=== PATIENT | male | born 1960 | race Caucasian/White ===

== ENCOUNTER 2019-05-16 13:07 | Inpatient (IN) | payer OTHER, SELFPAY ==
[~2019-05-16 13:07] MED LIST: ISOVUE-370 76%-LOCM 1 ML ONE; Iopamidol 370 76% 50 ML VIAL FS ONE
[2019-05-16 14:27] LABS: #Lymphocytes 2.5 thou/uL (1.20-3.40); #Monocytes 0.7 thou/uL (0.11-0.59); #Neutrophils 4.2 thou/uL (1.40-6.50); %Basophils 0.4 % (0.0-1.0); %Eosinophils 0.3 % (0.0-10.0); %Lymphocytes 33.4 % (21.0-51.0); %Monocytes 9.6 % (0.0-10.0); %Neutrophils 56.3 % (42.0-75.0); Hemoglobin 10.7 g/dL (14.0-18.0); Mean Corpuscular HGB CONC 33.8 g/dL (32.0-36.0); Mean Corpuscular Hemoglobin 34.6 pg (27.0-31.0); RBC Distribution Width 13.7 % (11.5-14.5); White Blood Cell (WBC) Count 7.4 thou/uL (4.8-10.8)
[2019-05-16 14:33] LABS: ALT (SGPT) 35 U/L (8-55); AST (SGOT) 95 U/L (5-34); Albumin 2.4 g/dL (3.5-5.0); Alkaline Phosphatase 115 U/L (40-150); Anion Gap 11 mmol/L (10-20); BUN (Urea Nitrogen) Less than 4 mg/dL (8.4-25.7); Calc. Creatinine Clearance 0 mL/min (70-130); Calcium 7.7 mg/dL (7.8-10.44); Carbon Dioxide 28 mmol/L (22-29); Chloride 94 mmol/L (98-107); Estimated GFR-MDRD Greater than 90; Globulin 4.9 g/dL (2.4-3.5); Glucose 112 mg/dL (70-105); Lipase 151 U/L (8-78); Magnesium 1.9 mg/dL (1.6-2.6); Potassium 3.4 mmol/L (3.5-5.1); Protein, Total 7.3 g/dL (6.0-8.3); Sodium 130 mmol/L (136-145)
[2019-05-16 14:37] LABS: MDiff Complete? YES; Macrocytosis SLIGHT = 6-15 cells (100X) (0-5/hpf); Mean Platelet Volume 7.9 fL (7.4-10.4); Platelet Count 66 thou/uL (130-400); Platelet Morphology Comment Appears Decreased; Polychromasia SLIGHT = 2-3 cells (100X) (0-2/hpf); Target Cells SLIGHT = 2-5 cells (100X) (0-1/hpf)
[2019-05-16 15:07] LABS: Bilirubin Large (Negative); Blood, Urine Negative (Negative); Glucose, Urine (Dipstick) 100 mg/dL (Negative); Leukocyte Negative (Negative); Nitrite Negative (Negative); Protein, Urine (Dipstick) Trace mg/dL (Neg-Trace); Urobilinogen > or = 8.0 mg/dL (Less than 2)
[2019-05-16 15:09] LABS: Clarity Clear (Clear)
[2019-05-16 15:26] LABS: INR-International Normal Ratio 1.8; PTT 41.4 SEC (22.9-36.1); Prothrombin Time 20.6 SEC (12.0-14.7)
--- NOTE | 2019-05-16 16:03 | CT ---
EXAM: CT Abdomen Pelvis W Con PROVIDED CLINICAL HISTORY: Abdominal pain COMPARISON: None FINDINGS: The visualized lung bases are free of significant opacity. A hiatal hernia is demonstrated with possi ble associated nonspecific mural thickening involving the visualized distal esophagus that may reflect esophagitis. There are innumerable subcentimeter hypodense foci throughout the liver. There is a 2.8 cm left adren al mass that demonstrates macroscopic fat compatible with myelolipoma. The kidneys, right adrenal gland, pancreas and spleen appear unremarkable. There is moderate gallbladder distention with evidence for at least one calcified stone. There is conspicuous free intraperitoneal fluid. There is no evidence for bowel obstruction. There is no evidence for free intraperitoneal air. Nonspecific mural thickening involving portions of small bowel and colon. The osseous structures demonstrate no concerning lytic or blastic lesions. IMPRESSION: 1. Innumerable subcentimeter hepatic hypodense lesions. Differential considerations would include met astatic disease and atypical infectious process. 2. Conspicuous free intraperitoneal fluid. No definite morphologic hepatic stigmata of cirrhosis. No splenic enlargement to suggest portal hypertension. 3. Hiatal hernia with possible mural thickening involving visualized portions of the distal esophagus , which may reflect esophagitis. 4. Other chronic findings as above.
--- NOTE | 2019-05-16 16:20 | PDOC.FPRHP ---
- History of Present Illness Chief Complaint: Abdominal Pain History of Present Illness: Pt is a 58 yo M with no PMH who presents for fatigue and abdominal pain. He has began to feel bad over the last month. About 2 weeks ago he has developed red urine. He has had diarrhea for the past week. His abdomen began to swell over the last couple of days. He takes Tylenol for the pain. His significant other says he has been having bowel and bladder incontinence. He has been belching a significant amount. He has hiccups so bad that he is unable to sleep in his own bedroom because he wakes up his significant other. Abdominal pain generalized dull ache. He says his pain is a 10/10. He has never had a colonoscopy. He has not seen a doctor in years. His FMH is + for CRC. - Allergies/Adverse Reactions Allergies Allergy/AdvReac Type Severity Reaction Status Date / Time No Known Allergies Allergy Unverified 05/16/19 16:49 - History PMHx: None PSHx: Vasectomy FHx: Mom- HTN, Colon Cancer ( 48), Dad- Heart attack ( 70), Sister- Breast Cancer Social: Smokes 1 PPD for 25 years. Few glasses of wine a day. No recreational drugs. - Review of Systems General: reports: fever/chills, night sweats, fatigue Eyes: reports: vision changes ENT: denies: nasal congestion, rhinorrhea Respiratory: reports: cough, shortness of breath Cardiovascular: denies: chest pain, edema Gastrointestinal: reports: nausea, vomiting, diarrhea, abdominal pain, other ( Melena). denies: constipation Genitourinary: reports: other (red urine) Skin: reports: jaundice Musculoskeletal: reports: arthritis/arthralgias Neurological: reports: weakness - Vital signs BP: 130/75 HR: 94 RR: 27 Tmax: 98.7 Pox: 98% on RA Wt: 81.65 kg - Physical Exam Constitutional: NAD, awake, alert and oriented HEENT: normocephalic and atraumatic, PERRLA, EOMI, normal nasal mucosa, MMM Neck: supple, trachea midline, no LAD Heart: RRR, normal S1/S2 Lungs: CTAB Abdomen: non-tender, bowel sounds present -Abdomen: Distended abdomen with L flank ecchymosis Musculoskeletal: normal structure, normal tone, ROM grossly normal Neurological: CN II-XII intact Skin: no rash/lesions -Heme/Lymphatic: Bruising on L flank Psychiatric: normal mood and affect FMR H&P: Results - Labs Result Diagrams: 05/16/19 18:43 05/16/19 13:53 Lab results: WBC 7.4 thou/uL (4.8-10.8) 05/16/19 13:53 Hgb 10.7 g/dL (14.0-18.0) L 05/16/19 13:53 Hct 31.8 % (42.0-52.0) L 05/16/19 13:53 MCV 102.0 fL (78.0-98.0) H 05/16/19 13:53 Plt Count 66 thou/uL (130-400) L 05/16/19 13:53 Neutrophils % 56.3 % (42.0-75.0) 05/16/19 13:53 Sodium 130 mmol/L (136-145) L 05/16/19 13:53 Potassium 3.4 mmol/L (3.5-5.1) L 05/16/19 13:53 Chloride 94 mmol/L (98-107) L 05/16/19 13:53 Carbon Dioxide 28 mmol/L (22-29) 05/16/19 13:53 BUN Less than 4 mg/dL (8.4-25.7) L 05/16/19 13:53 Creatinine 0.83 mg/dL (0.7-1.3) 05/16/19 13:53 Glucose 112 mg/dL (70-105) H 05/16/19 13:53 Calcium 7.7 mg/dL (7.8-10.44) L 05/16/19 13:53 Total Bilirubin 7.0 mg/dL (0.2-1.2) H 05/16/19 13:53 AST 95 U/L (5-34) H 05/16/19 13:53 ALT 35 U/L (8-55) 05/16/19 13:53 Alkaline Phosphatase 115 U/L (40-150) 05/16/19 13:53 Serum Total Protein 7.3 g/dL (6.0-8.3) 05/16/19 13:53 Albumin 2.4 g/dL (3.5-5.0) L 05/16/19 13:53 Lipase 151 U/L (8-78) H 05/16/19 13:53 Urine Ketones Trace mg/dL (Negative) A 05/16/19 14:50 Urine Blood Negative (Negative) 05/16/19 14:50 Urine Nitrite Negative (Negative) 05/16/19 14:50 Ur Leukocyte Esterase Negative (Negative) 05/16/19 14:50 - EKG Interpretation EKG: Sinus Tachy with QTc: 483 FMR H&P: A/P - Problem List (1) Coagulation defect Current Visit: Yes Status: Acute (2) Thrombocytopenia Current Visit: Yes Status: Acute Code(s): D69.6 - THROMBOCYTOPENIA, UNSPECIFIED (3) Anemia Current Visit: Yes Status: Acute Code(s): D64.9 - ANEMIA, UNSPECIFIED (4) Hyponatremia Current Visit: Yes Status: Acute Code(s): E87.1 - HYPO-OSMOLALITY AND HYPONATREMIA (5) Liver mass Current Visit: Yes Status: Acute Code(s): R16.0 - HEPATOMEGALY, NOT ELSEWHERE CLASSIFIED - Plan Pt is a 58 yo M with no past medical history who presents for abdominal pain and jaundice. 1. Liver Masses * Hx: jaundice, abdominal pain, bowel & bladder incontinence, cough with blood, red urine, fatigue * FMH of Colon Cancer * No Hx of Colonoscopy * AST: 95 * Bili: 7 * Lipase: 151 * TP: 7.3, Albumin 2.4 * UA: + Bili and Urobiliogen * Abd/Pelvis CT: Numerous subcm hepatic hypodensities, intraperitoneal fluid, and mural thickening of the distal esophagus * FOBT: pending * Consulted GI, appreciate recs 2. Anemia & Thrombocytopenia Hgb: 10.7 Plt: 66 * Will Monitor * Holding Anticoagulants * Peripheral Smear 3. Hyponatremia Na: 130 * LR @ 100 Condition: Stable Diet: HHLSo DVT PPX: Holding for now GI PPX: Pepcid Activity: Ambulate with Assist Precautions: Fall PCP: CC Code Status: DNR-DNI Dispo: Inpt, requires work-up for liver masses. LOS > 2 days. FMR H&P: Upper Level - Plan Date/Time: 05/16/19 1620 ICiaran MD, have evaluated this patient and agree with findings/plan as outlined by graduate internship resident. Pertinent changes/additions are listed here. Adiel Woods is a 58 year old with no PMH due to not having provider who presents to the ED because he has been feeling unwell over the last month. He has also had increased abdominal distention and dark urine over the last week. States that he has had bowel and bladder incontinence which is new for him. He had hiccups over the last week consistently keeping him up at night. Associated dark stools over the last 1-2 months. He has never had a colonoscopy. He has a family history of colon cancer. He drinks about 3-4 glasses of wine a day. He denies any fever, chills, chest pain, dyspnea. In the ED, he had a bilirubin of 7.0, elevated AST. INR of 1.8 and elevated PT/ PTT. Hg of 10.7 with MCV of 102. CT abd was done that showed innumerable subcentimeter hypodense hepatic lesions, considering mets vs infection. Free fluid in the intraperitoneum, mural thickening of a hiatal hernia at the distal esophagus and mural thickening of the small bowel and colon. FOBT pos in the ED. There was also a 2.8 cm adrenal mass seen on CT. EKG showed sinus tachy with QTc prolongation at 483. Lipase was 157. We will admit him to inpatient medical, consulting GI for jaundice, hyperbilirubinemia and liver lesions. Please see graduate internship note above for full H&P, which I have reviewed and agree with. Addendum - Attending - Attending Attestation Date/Time: 05/16/191905 I personally evaluated the patient and discussed the management with Dr. Zavala/ Javier. H&P repeated by me. I agree with the History, Examination, Assessment and Plan documented above with any addition or exceptions noted below. 58 yo WM with no PMH as he hasn't seen a doctor in over 20 years who presents with abdominal pain and swelling and feeling poorly. He endorses intermittent RUQ abdominal pain, hematemesis, dark loose stools and abdominal swelling for the past 2-3 weeks. His states he hasn't eaten in 2-3 weeks and has lost 15# during that time period. Mild yellowing of the skin and some bruising. He states that he fell down earlier this week because he was just weak. Now has some bruising to left abdomen. VSS Gen: A&O x3, mild jaundice CV: normal s1/s2 no murmurs Lungs: ctab Abd: distended, moderate RUQ ttp, no rebound, positive fluid wave. Bruising to left lateral abdomen and flank. Ext: tr edema Labs and imaging reports reviewed. 1)Acute liver failure-elevated bili and AST and alk phos with elevated INR 2) Hematemesis 3) Anemia 4) Hyponatremia 5) Thrombocytopenia-most likely secondary to splenic sequestration. 6) Multiple liver lesions/masses 7) Family history of colon cancer - Appreciate GI input for further evaluation. Morphine prn pain. Avoid tylenol and ibuprofen secondary to liver failure and GI bleeding.
[2019-05-16] MEDS ORDERED: Acetaminophen 325 MG TAB PO PRN (16:41)
[2019-05-16 17:33] LABS: Troponin I Less than 0.010 ng/mL (< 0.028)
[2019-05-16 18:12] VITALS: BMI 27.8
[2019-05-16] MEDS: Ondansetron ODT 4 MG TAB PO PRN (18:21)
[2019-05-16 19:01] LABS: Hemoglobin 11.2 g/dL (14.0-18.0); Mean Corpuscular HGB CONC 33.8 g/dL (32.0-36.0); Mean Corpuscular Hemoglobin 34.7 pg (27.0-31.0); Mean Platelet Volume 7.9 fL (7.4-10.4); Platelet Count 64 thou/uL (130-400); RBC Distribution Width 13.7 % (11.5-14.5); Red Blood Cell (RBC) Count 3.23 mill/uL (4.70-6.10); White Blood Cell (WBC) Count 8.2 thou/uL (4.8-10.8)
[2019-05-16] MEDS ORDERED: Morphine 4 MG/ML VIAL SLOW IVP PRN (19:03)
[2019-05-16] MEDS ORDERED: Sodium Chloride 0.9% (PF) 10 ML VIAL FS PRN (19:24)
[2019-05-16] MEDS ORDERED: GoLYTELY 4,000 ml Bottle PO SCH (19:30)
[2019-05-16 19:49] LABS: Band 8 % (5-11); Differential Comment Immature Cell(s); Eosinophils 2 % (0-10); Lymphocytes 22 % (21-51); MDiff Complete? YES; Macrocytosis SLIGHT = 6-15 cells (100X) (0-5/hpf); Metamyelocyte 1 % (0-0); Monocytes 3 % (0-10); Neutrophil 61 % (42-75); Platelet Morphology Comment Appears Decreased; Polychromasia SLIGHT = 2-3 cells (100X) (0-2/hpf); Reflex for Review?? YES; Target Cells SLIGHT = 2-5 cells (100X) (0-1/hpf)
[2019-05-16 20:45] LABS: Troponin I 0.019 ng/mL (< 0.028)
[2019-05-16] MEDS ORDERED: Famotidine 20 MG TAB PO SCH (21:00)
[2019-05-16] MEDS: Pantoprazole 40 MG VIAL IVP SCH (21:11)
[2019-05-16] MEDS: Nicotine 21 MG PATCH TD SCH ×2 (21:11→21:16)
--- NOTE | 2019-05-17 01:45 | CON ---
DATE OF CONSULTATION: 05/16/2019 REASON FOR CONSULTATION: Abdominal pain, jaundice, hematemesis, and abnormal gastrointestinal imaging. CONSULTING PROVIDER: Dr. Gentry Zavala. HISTORY OF PRESENT ILLNESS: The patient is a 58-year-old male with past medical history of tobacco abuse and gastroesophageal reflux disease, presenting with complaints of abdominal pain, increased abdominal distention and hematemesis. He states that he was in the usual state of health until approximately 2 weeks ago when he began having increased right-sided abdominal pain, characterized as an "unbearable" type pain that was intermittent, would occur every 2 to 3 hours, lasts for 30 to 45 minutes and then spontaneously resolve. The severity of this pain reached approximately 8/10 with no clear alleviating or exacerbating factors. During the same time period, this was associated with a change in his bowel habits with increased constipation characterized as having one solid/soft bowel movement per day that was small in volume, but he did not experience any increased difficulty with defecation (this was a change from one solid large caliber stool per day with no difficulty). This also was associated with increased difficulty breathing, characterized as intermittent episodes of inability to catch his own breath and would ultimately require him to raise his hands above his head in order to adequately breathe. He also has had intermittent episodes of hematemesis characterized as "acid reflux coming back up" resulting in him vomiting up small amounts of blood-tinged mucus and/or clear fluid (this was personally witnessed by me at bedside). With the increasing abdominal pain and worsening of his breathing/respiratory status, it prompted him to seek healthcare assistance at the [facility] ER. While in the ER, he had a CT scan that showed a large hiatal hernia with nonspecific mural thickening of the distal esophagus consistent with acid reflux, but also innumerable hypodense foci throughout the liver concerning for possible infectious versus malignant process. He was subsequently admitted to the hospital for further evaluation. Currently, he denies any hematochezia, dysphagia, or odynophagia. REVIEW OF SYSTEMS: A 10-category review of systems was obtained with all responses negative except for the pertinent positives as listed in HPI. PAST MEDICAL HISTORY: As per HPI. PAST SURGICAL HISTORY: Vasectomy. FAMILY HISTORY: The patient states that his mother was diagnosed with colon cancer in her 40s and passed at the age of 48 due to this condition. Sister also diagnosed with breast cancer, but could not remember the age of diagnosis. SOCIAL HISTORY: Smokes approximately 1 pack per day and has been doing so for the last 25 years. Also drinks approximately 2 to 3 glasses of wine per day and has been doing this for years. Denies any illicit drug use. OUTPATIENT MEDICATIONS: None. ALLERGIES: NO KNOWN DRUG ALLERGIES. PHYSICAL EXAMINATION: VITAL SIGNS: Temperature 98.9, pulse 101, blood pressure 154/86, respiratory rate 20, saturating 99% on room air. GENERAL: The patient was sitting up in bed, in only mild distress intermittently with difficulty breathing. Alert and oriented x4. HEENT: Normocephalic and atraumatic. NECK: Supple. No JVD noted. Mild scleral icterus noted bilaterally. CARDIOVASCULAR: Regular rate and rhythm with no discernible murmurs, gallops, or rubs. RESPIRATORY: Diminished breath sounds auscultated in all lung gibson, otherwise clear to auscultation bilaterally. ABDOMEN: Normoactive bowel sounds, soft, but was somewhat tense to palpation. [id number]-[id number] abdominal distention. Tenderness to palpation in the midepigastric, right upper quadrant, and right lower quadrants. EXTREMITIES: No cyanosis or clubbing. 1+ bilateral lower extremity edema, extending up to mid hitchcock. LABORATORY DATA: CBC with a white blood cell count of 7.4, hemoglobin 10.7, hematocrit 31.8, platelets 66. INR 1.8. Chemistry with a sodium of 130, potassium 3.4, chloride 94, CO2 of 28, BUN less than 4, creatinine 0.83, glucose 112, AST 95, ALT 35, alkaline phosphatase 115, total bilirubin 7.0, albumin 2.4, lipase 151. IMAGING DATA: CT of the abdomen and pelvis obtained on May 16, 2019, showed the presence of a hiatal hernia with nonspecific mural thickening in the distal esophagus concerning for acid reflux. Innumerable subcentimeter hypodense foci were also seen throughout the liver. A 2.8 cm myelolipoma was seen on the left adrenal gland. Moderate gallbladder distention was also noted in addition to a [id number] amount of intraperitoneal fluid and nonspecific thickening of the small bowel and colon. ASSESSMENT AND PLAN: The patient is a 58-year-old gentleman with past medical history of tobacco abuse, acid reflux, and a family history of colon cancer, presenting with right-sided abdominal pain, jaundice, abnormal gastrointestinal imaging, and hematemesis. 1. Hematemesis. The patient is presenting with a 2- to 3-week history of increased hematemesis characterized as intermittently vomiting up blood-tinged clear fluid. This has not happened prior to these last 2 to 3 weeks; however, the patient does endorse increased GERD symptoms, characterized as substernal pyrosis and regurgitation in the meantime. Given the appearance of blood-tinged hematemesis, erosive esophagitis is higher on the list of possible etiologies. However, the differential could include gastritis, peptic ulcer disease, Dieulafoy lesion, arteriovenous malformation, and/or upper GI neoplasm. At this point, endoscopic evaluation of the upper GI tract is recommended for determination of this hematemesis in light of possible malignant process within the liver. The elevation of his T-bili could also be contributed to the digestion of bleeding in the upper GI tract given relatively normal enzymes otherwise. Recommendations: a. Would continue to trend his H and H and transfuse as necessary to maintain an H and H of 7/21. b. Continue to monitor clinically for signs of active GI bleeding. c. Would plan for EGD tomorrow. Please make the patient n.p.o. at midnight in preparation for this procedure. d. Would start the patient on pantoprazole 40 mg IV b.i.d. instead of famotidine given its gastric protective effects and better literature in terms of treating ulcer disease. 2. Right-sided abdominal pain/distention. The patient is presenting with acute onset of right-sided abdominal pain in association with increased abdominal distention that has been occurring over the last 2 to 3 weeks. Upon evaluation of the CT scan on admission, he is showing innumerable foci within the liver concerning for an infectious versus metastatic process. Given his family history of colon cancer with his mother diagnosed in her mid to late 40s, the patient is definitely at increased risk for colon cancer himself. At this time, with his increased abdominal distention, it is consistent with ascites with the origin unknown at this time. Given his extensive alcohol consumption history and thrombocytopenia, it is also concerning for the presence of cirrhosis (especially with an elevated INR at this time). Recommendations: a. Would obtain a paracentesis after the EGD and colonoscopy tomorrow for further evaluation of the abdominal fluid. b. We will administer GoLYTELY tonight for possible constipation contributing to his abdominal pain. c. EGD and colonoscopy for possible intraluminal etiology of his abdominal pain as well. 3. Abnormal gastrointestinal imaging/jaundice. The patient is presenting with CT imaging on admission showing multiple subcentimeter hypodense foci within the liver in addition to the presence of a moderate amount of ascites concerning for malignant process. Given his family history of colon cancer, a colonic primary malignancy is high on the differential. However, given his hematemesis and mural thickening of the distal esophagus, Ford's esophagus with malignant transformation is not out of question, is not outside the realm of possibility either. The current etiology of his jaundice is largely unknown given the fact that these innumerable hypodense foci do not seem to be compressing the biliary system, but instead could be due to ingestion of blood in the upper GI tract and further contributing to his hyperbilirubinemia. Recommendations: a. Would proceed with EGD and colonoscopy as above. b. Would consider obtaining an MRI of the liver for further evaluation of these hypodense lesions and the biliary tree itself. c. Paracentesis as above for evaluation of possible portal hypertension secondary to his mass effect or cirrhosis. We will continue to follow. Please call with any questions. Job ID: [id number]
[2019-05-17 04:37] LABS: #Basophils 0.1 thou/uL (0.0-0.2); #Lymphocytes 2.2 thou/uL (1.20-3.40); #Monocytes 0.7 thou/uL (0.11-0.59); #Neutrophils 4.9 thou/uL (1.40-6.50); %Basophils 0.8 % (0.0-1.0); %Eosinophils 0.3 % (0.0-10.0); %Monocytes 8.8 % (0.0-10.0); %Neutrophils 62.2 % (42.0-75.0); Hemoglobin 10.3 g/dL (14.0-18.0); Mean Corpuscular HGB CONC 33.8 g/dL (32.0-36.0); Mean Corpuscular Hemoglobin 34.9 pg (27.0-31.0); Mean Platelet Volume 7.7 fL (7.4-10.4); Platelet Count 61 thou/uL (130-400); RBC Distribution Width 13.6 % (11.5-14.5); Red Blood Cell (RBC) Count 2.97 mill/uL (4.70-6.10); White Blood Cell (WBC) Count 7.9 thou/uL (4.8-10.8)
[2019-05-17 04:58] LABS: ALT (SGPT) 36 U/L (8-55); AST (SGOT) 95 U/L (5-34); Albumin 2.3 g/dL (3.5-5.0); Alkaline Phosphatase 110 U/L (40-150); Anion Gap 14 mmol/L (10-20); BUN (Urea Nitrogen) 4 mg/dL (8.4-25.7); Bilirubin, Total 6.9 mg/dL (0.2-1.2); Calc. Creatinine Clearance 121 mL/min (70-130); Calcium 7.6 mg/dL (7.8-10.44); Carbon Dioxide 25 mmol/L (22-29); Chloride 96 mmol/L (98-107); Estimated GFR-MDRD Greater than 90; Globulin 4.9 g/dL (2.4-3.5); Glucose 68 mg/dL (70-105); Potassium 3.4 mmol/L (3.5-5.1); Protein, Total 7.2 g/dL (6.0-8.3); Sodium 132 mmol/L (136-145)
--- NOTE | 2019-05-17 05:15 | PDOC.FM ---
- Subjective Subjective: Notes continued hiccups and abdominal distention. Main concern this morning is being so thirsty now that he is PO. Pt denies any significant history of drinking or IV drug use. Has had very poor medical follow up over the past couple decades. - Objective Vital Signs & Weight: Vital Signs (12 hours) Temp Pulse Resp BP Pulse Ox 05/17/19 04:04 98.6 F 109 H 21 H 128/74 97 05/17/19 02:01 105 H 05/17/19 00:00 99.0 F 117 H 22 H 108/66 96 05/16/19 20:00 98 05/16/19 17:40 98.9 F 101 H 20 154/86 H 99 Weight Weight 80.739 kg Result Diagrams: 05/17/19 03:49 05/17/19 03:49 Phys Exam - Physical Examination Constitutional: NAD dry mm, very minimal scleral icterus Neck: no JVD, full ROM Respiratory: no wheezing, no rales, no rhonchi Cardiovascular: RRR, no significant murmur Distended abdomen, resonant to percussion, positive fluid wave Musculoskeletal: pulses present 1+ bilateral LE edema Neurological: non-focal Psychiatric: normal affect, A&O x 3 Skin: no rash Dx/Plan (1) Jaundice Code(s): R17 - UNSPECIFIED JAUNDICE Status: Acute (2) Transaminitis Code(s): R74.0 - NONSPEC ELEV OF LEVELS OF TRANSAMNS & LACTIC ACID DEHYDRGNSE Status: Acute (3) Ascites Code(s): R18.8 - OTHER ASCITES Status: Acute (4) Hematemesis of unknown cause Code(s): K92.0 - HEMATEMESIS Status: Acute (5) Coagulation defect Status: Acute (6) Hyponatremia Code(s): E87.1 - HYPO-OSMOLALITY AND HYPONATREMIA Status: Acute (7) Liver mass Code(s): R16.0 - HEPATOMEGALY, NOT ELSEWHERE CLASSIFIED Status: Acute (8) Thrombocytopenia Code(s): D69.6 - THROMBOCYTOPENIA, UNSPECIFIED Status: Acute (9) Macrocytic anemia Code(s): D53.9 - NUTRITIONAL ANEMIA, UNSPECIFIED Status: Acute - Plan Plan: 1. Liver masses w/ new onset ascites and jaundice * Hx: jaundice, abdominal pain, bowel & bladder incontinence, cough/emesis with blood, red urine, fatigue * FMH of Colon Cancer, No Hx of Colonoscopy * Elevated LFT and bilirubin, elevated INR/PT/PTT * Abd/Pelvis CT: Numerous subcm hepatic hypodensities, intraperitoneal fluid, and mural thickening of the distal esophagus * FOBT: pending * GI Recs: EGD and colonoscopy today followed by dx paracentesis 2. Macrocytic anemia in setting of alcohol abuse hx & recent hematemesis Hgb: 10.7 upon presentation * Distal esophageal mural thickening - erosive esophagitis vs barretts * Will Monitor H&H, goal above 03/16 - currently stable @ 10.3/30.6 * Holding Anticoagulants * Peripheral Smear pending * Folate, B12, iron studies ordered to assess cause of macrocytosis * GI recs: EGD today 3. Transaminitis AST elevated, today 95. ALT nml at 36 * AST twice ALT levels consistent with alcoholic elevations in liver enzymes, cont monitor * Hepatitis B and C ordered * Lard Renderer appropriate alcohol consumption 4. Hyperbilirubinemia w/ jaundice * EGD today w/ abdominal MRI to follow - obstructive biliary vs intrinsic hepatic etiology vs less likely RBC turnover * Fractionated bilirubin ordered 5. Thrombocytopenia in setting of acute vs chronic liver disease Plt: 66 * Cont to monitor * Avoid anticoagulants 6. Hyponatremia Na: 132 * LR @ 100 Condition: Stable Diet: NPO DVT PPX: Holding for now GI PPX: Protonix Activity: Ambulate with Assist Precautions: Fall PCP: CC Code Status: DNR-DNI Dispo: Inpt, EGD, colonoscopy, and dx paracentesis today per GI recs to evaluate etiology of hematemesis and new onset ascites. Addendum - Attending - Attending Attestation Date/Time: 05/17/19 9748 I personally evaluated the patient and discussed the management with Dr. Moe at 0750 am. I agree with the History, Examination, Assessment and Plan documented above with any addition or exceptions noted below. New-onset ascites, innumerable liver masses, hematemesis and melena- GI to perform EGD and colonoscopy and diagnostic paracentesis. Liver failure- presumed secondary to metastatic disease but unknown primary source.
[2019-05-17 07:26] LABS: Bilirubin, Direct 4.4 mg/dL (0.1-0.3); Bilirubin, Total 6.4 mg/dL (0.2-1.2); Iron 97 ug/dL (65-175); Iron Binding Capacity, Total 83 mcg/dL (261-462)
[2019-05-17] MEDS: Pantoprazole 40 MG VIAL IVP SCH ×2 (08:24→20:59)
[2019-05-17 08:32] LABS: Ferritin 3088.74 ng/mL (22-322)
[2019-05-17 09:45] LABS: HBSAg Index 0.17 S/CO (0-0.99); Hep B Surf Ag Non-Reactive S/CO (NonReactive); Hep C IgG Ab Non-Reactive (NonReactive)
[2019-05-17 10:26] LABS: Hep B Surf AB Indeterminate (NonReactive)
[2019-05-17 10:27] LABS: HBSAB Concentration 9.25 mIU/mL
[2019-05-17 15:17] LABS: Hemoglobin 10.3 g/dL (14.0-18.0); Mean Corpuscular HGB CONC 33.1 g/dL (32.0-36.0); Mean Corpuscular Hemoglobin 34.9 pg (27.0-31.0); Platelet Count 60 thou/uL (130-400); RBC Distribution Width 13.7 % (11.5-14.5); Red Blood Cell (RBC) Count 2.96 mill/uL (4.70-6.10); White Blood Cell (WBC) Count 8.4 thou/uL (4.8-10.8)
[2019-05-17] MEDS ORDERED: PROPOFOL 200 MG/20 ML VIAL ONE (16:06)
[2019-05-17] MEDS: Ondansetron ODT 4 MG TAB PO PRN (17:20)
[2019-05-17] MEDS: Morphine 2 MG/ML SYRINGE SLOW IVP PRN (17:32)
--- NOTE | 2019-05-17 19:09 | OP ---
DATE OF PROCEDURE: 05/17/2019 PROCEDURES PERFORMED: 1. Esophagogastroduodenoscopy with biopsy. 2. Colonoscopy with polypectomy and control of hemorrhage. INDICATIONS FOR PROCEDURE: Hematemesis, abdominal pain, and abnormal GI imaging (liver lesions noted on CT scan). DESCRIPTION OF PROCEDURE: After the risks and benefits of the procedures were explained to the patient including risks of bleeding, infection, perforation, reactions to anesthesia, aspiration, and/or pain, informed consent was obtained. The patient was then taken to the endoscopy suite, where deep sedation was administered via propofol and anesthesia support. Once adequate sedation was achieved, the patient was maneuvered in the left lateral decubitus position, and the standard gastroscope was introduced into the mouth with intubation of the esophagus, stomach, and the proximal small intestines with the findings listed below. The patient tolerated this portion of the procedure well with no immediate perioperative complications. Upon conclusion of the EGD portion, all equipment was removed from the patient, and the bed was rotated 180 degrees in anticipation of the colonoscopy. After a digital rectal examination was performed, the standard colonoscope was introduced into the rectum and advanced to the terminal ileum with some difficulty requiring reduction of the scope. The quality of the prep was fair to good with a [id number] amount of retained solid and liquid stool, but adequate visualization of the colonic mucosa was achieved (although fine mucosal lesions less than 5 mm in size could have been missed). The patient tolerated the procedure well with no immediate perioperative complications. Upon conclusion of the colonoscopy, all equipment was removed from the patient, and the patient was transferred to PACU in satisfactory condition. EGD FINDINGS: Esophagus: Severe ulceration and increased mucosal erythema were seen throughout the entire esophagus extending from the GE junction at 37 cm to just distal to the upper esophageal sphincter at 20 cm. This erythema and ulceration were circumferential with large linear ulcerations extending up from the GE junction as well. There were some scattered areas of whitish plaque formation intermixed with the ulcerations concerning for possible Kaylynn. Multiple random biopsies were taken both of the ulcerations and the white plaques and placed in a specimen jar for evaluation. Otherwise, there was no evidence of mass lesions or active/recent bleeding, although the mucosa was somewhat friable to passage of the scope. Stomach: Diffuse severe mucosal erythema was seen throughout the entire stomach extending from the gastric cardia, fundus, body, greater curvature and in through the antrum and incisura. However, there were no other associated lesions with this finding with no evidence of erosions, ulcerations, mass lesions, or active/recent bleeding. Multiple random biopsies were taken throughout the stomach for evaluation of possible underlying pathology versus H. pylori. Duodenum: Normal-appearing mucosa was seen in both the duodenal bulb and second portion of the duodenum. There was no evidence of erosions, ulcerations, mass lesions, or active/recent bleeding. Impression: 1. LA grade D reflux-mediated erosive esophagitis. 2. 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 3. Nonspecific diffuse gastropathy (may be indicative of portal hypertensive gastropathy). COLONOSCOPY FINDINGS: Digital rectal exam: Normal findings were seen on external examination. Colon findings: Normal-appearing mucosa was seen within the terminal ileum as well as at the ileocecal valve and appendiceal orifice. Normal-appearing mucosa was also seen within the cecum; however, a 4 to 5 mm sessile polyp was seen in the ascending colon and completely removed with cold snare polypectomy. It was retrieved and placed in a specimen jar for evaluation. However, upon evaluation of the mucosal defect made by the polypectomy, he continued to bleed well into 3 to 4 minutes after the polypectomy with direct visualization. A hemoclip x1 was then placed across the mucosal defect with good hemostasis achieved, and no bleeding at the end of the maneuver. Normal-appearing mucosa was then seen in the distal ascending and proximal transverse colon; however, a 5 to 6 mm polyp was seen in the midtransverse colon and not removed during this procedure given concerns for increased bleeding with polypectomy of a larger lesion. Normal-appearing mucosa was then seen in the distal transverse, descending, sigmoid colon, and rectum. Medium-sized internal hemorrhoids were seen on rectal retroflexion, but did not exhibit any evidence of bleeding. Impression: 1. A 4 to 5 mm ascending colon polyp, status post cold snare polypectomy with significant bleeding after the polypectomy requiring a hemoclip x 1 in order to achieve hemostasis. 2. A 5 to 6 mm transverse colon polyp (not intervened upon due to increased risk of bleeding). 3. Medium-sized internal hemorrhoids. 4. No lesions indicative of colonic cancer were seen during this examination. RECOMMENDATIONS: 1. We would continue to trend his H and H and transfuse as necessary to maintain an H and H of 7/21. 2. Continue to monitor clinically for signs of active GI bleeding. 3. We will follow up on the biopsy results with further management guided by the pathology report. 4. We would continue the patient on PPI 40 mg b.i.d. given severe reflux esophagitis. 5. We would adhere to standard reflux precautions while the patient is inpatient. 6. We would perform a paracentesis for evaluation of the ascitic fluid for possible malignant versus portal hypertensive etiology. 7. We would obtain an alpha-fetoprotein for possible hepatocellular carcinoma primary malignancy contributing to CT findings. We will continue to follow. Please call with any questions. Job ID: [id number]
[2019-05-17] MEDS: Nicotine 21 MG PATCH TD SCH (20:59)
--- NOTE | 2019-05-18 05:25 | PDOC.FM ---
- Subjective Subjective: Pt notes continued abdominal discomfort and distention. No problems since EGD/ Colon yesterday - notes feeling sleeping since then. Cont hiccups. Pt denies family hx of liver disease. Denies skin photosensitivity or recurrent skin lesions. notes pt has seeminly always had darker tanned skin. Continues to deny hx of heavy drinking. Pt does not take any vitamins or supplements at home. - Objective Vital Signs & Weight: Vital Signs (12 hours) Temp Pulse Resp BP Pulse Ox 05/17/19 20:00 98.9 F 109 H 20 144/77 H 96 Weight Admit Weight 80.739 kg Weight 80.739 kg Result Diagrams: 05/18/19 05:34 05/18/19 05:34 Phys Exam - Physical Examination Constitutional: NAD +scleral icterus Neck: full ROM Respiratory: no wheezing, no rales, no rhonchi, clear to auscultation bilateral Cardiovascular: RRR, no significant murmur +distension, diffuse mild tenderness, fluid wave, resonant to percussion Musculoskeletal: edema present (+1 bilateral LE pitting edema) Neurological: non-focal, normal sensation Psychiatric: normal affect, A&O x 3 Deviation from normal: Noticeably hairston skin to arms and neck, few healing scabs to upper extrem Dx/Plan (1) Jaundice Code(s): R17 - UNSPECIFIED JAUNDICE Status: Acute (2) Transaminitis Code(s): R74.0 - NONSPEC ELEV OF LEVELS OF TRANSAMNS & LACTIC ACID DEHYDRGNSE Status: Acute (3) Ascites Code(s): R18.8 - OTHER ASCITES Status: Acute (4) Hematemesis of unknown cause Code(s): K92.0 - HEMATEMESIS Status: Acute (5) Coagulation defect Status: Acute (6) Hyponatremia Code(s): E87.1 - HYPO-OSMOLALITY AND HYPONATREMIA Status: Acute (7) Liver mass Code(s): R16.0 - HEPATOMEGALY, NOT ELSEWHERE CLASSIFIED Status: Acute (8) Thrombocytopenia Code(s): D69.6 - THROMBOCYTOPENIA, UNSPECIFIED Status: Acute (9) Macrocytic anemia Code(s): D53.9 - NUTRITIONAL ANEMIA, UNSPECIFIED Status: Acute - Plan Plan: 1. Liver masses w/ new onset ascites and jaundice * Hx: jaundice, abdominal pain, bowel & bladder incontinence, cough/emesis with blood, red urine, fatigue * FMH of Colon Cancer * Elevated LFT and bilirubin, elevated INR/PT/PTT * Abd/Pelvis CT: Numerous subcm hepatic hypodensities, intraperitoneal fluid, and mural thickening of the distal esophagus * FOBT: pending * EGD showing erosive esophagitis and other findings concerning for atul, diffuse gastric erythema - biopsies pending * Colonoscopy showing 2 polyps, one removed w/ subsequent bleeding requiring clip for hemostasis, remaining polyp left in situ 2/2 bleeding risk * GI Recs: Paracentesis, AFP * Will consider further imaging w/ MRI abdomen following paracentesis today 2. Macrocytic anemia in setting of alcohol abuse hx & recent hematemesis Hgb: 10.7 upon presentation * Distal esophageal mural thickening - erosive esophagitis vs barretts * Will Monitor H&H, goal above 03/16 - currently stable @ 10.3/30.6 * Holding Anticoagulants * Peripheral Smear pending * Folate, pending * B12 - nml * Iron studies: iron normal, remaining panel all elevated suggesting iron overload 3. Iron overload * Serum iron: 97 * TIBC: 18 * % Sat: 118 * Ferritin: 3088 * DDx: w/ normal iron and remaining iron studies elevated: Liver disease ( alcoholic hepatitis, chronic hepatitis, NAFLD), hereditary hemochromatosis, ineffective erythropoesis (porphyrias, B12/folate deficiency, thalassemias, sideroblastic anemias) * In this pt most likely cause at this point is liver disease increasing iron studies vs less likely hereditary hemochromatosis w/ secondary liver disease * Will consider MRI abdomen to assess total liver iron as well as genetic testing for hemochromatosis 4. Transaminitis AST elevated, today 95. ALT nml at 36 * AST twice ALT levels consistent with alcoholic elevations in liver enzymes, cont monitor * Hepatitis B and C - negative * HIV pending * Route Sales Trainee appropriate alcohol consumption 5. Hyperbilirubinemia w/ jaundice * EGD today w/ abdominal MRI to follow - obstructive biliary vs intrinsic hepatic etiology vs less likely RBC turnover * Fractionated bilirubin - showed elevation of both direct and indirect w/ greater proportional elevation in direct 6. Thrombocytopenia in setting of acute vs chronic liver disease Plt: 66 * Cont to monitor * Avoid anticoagulants 7. Hyponatremia Na: 132 * LR @ 100 Condition: Stable Diet: NPO DVT PPX: Holding for now GI PPX: Protonix Activity: Ambulate with Assist Precautions: Fall PCP: CC Code Status: DNR-DNI Dispo: Inpt, EGD, colonoscopy, and dx paracentesis today per GI recs to evaluate etiology of hematemesis and new onset ascites. Addendum - Attending - Attending Attestation Date/Time: 05/18/192118 I personally evaluated the patient and discussed the management with Dr. Moe I agree with the History, Examination, Assessment and Plan documented above with any addition or exceptions noted below. Acute liver failure- paracentesis tomorrow Esophagitis- PPI Tachycardia and hyponatremia- will give mild IVF Iron overload- will discuss with GI possibility of hemochromatosis and possible MRI liver.
[2019-05-18 06:07] LABS: Band 6 % (5-11); Hemoglobin 10.1 g/dL (14.0-18.0); Lymphocytes 28 % (21-51); MDiff Complete? YES; Macrocytosis SLIGHT = 6-15 cells (100X) (0-5/hpf); Mean Corpuscular HGB CONC 33.5 g/dL (32.0-36.0); Mean Corpuscular Hemoglobin 34.7 pg (27.0-31.0); Monocytes 7 % (0-10); Neutrophil 58 % (42-75); Platelet Count 60 thou/uL (130-400); Platelet Morphology Comment Appears Decreased; RBC Distribution Width 13.6 % (11.5-14.5); Red Blood Cell (RBC) Count 2.92 mill/uL (4.70-6.10); Target Cells SLIGHT = 2-5 cells (100X) (0-1/hpf); White Blood Cell (WBC) Count 7.6 thou/uL (4.8-10.8)
[2019-05-18 06:15] LABS: ALT (SGPT) 35 U/L (8-55); AST (SGOT) 84 U/L (5-34); Albumin 2.1 g/dL (3.5-5.0); Alkaline Phosphatase 100 U/L (40-150); Anion Gap 15 mmol/L (10-20); BUN (Urea Nitrogen) 9 mg/dL (8.4-25.7); Bilirubin, Total 8.1 mg/dL (0.2-1.2); Calc. Creatinine Clearance 101 mL/min (70-130); Calcium 7.4 mg/dL (7.8-10.44); Carbon Dioxide 24 mmol/L (22-29); Chloride 93 mmol/L (98-107); Estimated GFR-MDRD 87; Globulin 4.6 g/dL (2.4-3.5); Glucose 70 mg/dL (70-105); Potassium 3.8 mmol/L (3.5-5.1); Protein, Total 6.7 g/dL (6.0-8.3); Sodium 128 mmol/L (136-145)
[2019-05-18 07:14] LABS: HIV (1/2) Antibody/Antigen Non-Reactive (NonReactive); HIV 1/2 INDEX 0.08 S/CO (<1.00)
[2019-05-18] MEDS: Pantoprazole 40 MG VIAL IVP SCH ×2 (09:30→19:42)
[2019-05-18 10:13] LABS: INR-International Normal Ratio 2.1; PTT 45.7 SEC (22.9-36.1); Prothrombin Time 23.8 SEC (12.0-14.7)
[2019-05-18] MEDS: Morphine 2 MG/ML SYRINGE SLOW IVP PRN (12:03)
[2019-05-18] MEDS: Ondansetron ODT 4 MG TAB PO PRN (15:22)
[2019-05-18] MEDS: Nicotine 21 MG PATCH TD SCH (18:56)
--- NOTE | 2019-05-18 18:57 | PRG ---
DATE OF SERVICE: 05/18/2019 REASON FOR CONSULTATION: Jaundice, abnormal GI imaging, and hematemesis. SUBJECTIVE: The patient states that he is doing somewhat better today with no further episodes of vomiting nor any further episodes of hematemesis. He does continue to have abdominal distention and was scheduled for paracentesis earlier today, but it was canceled due to fears of increased bleeding during the procedure. At this time, it seems that the patient has been rescheduled for tomorrow. He does still continue to have mild abdominal discomfort, but denies any overt abdominal pain. Currently, he denies any hematochezia, dysphagia, or odynophagia. He has not had a bowel movement since the colonoscopy yesterday. OBJECTIVE: VITAL SIGNS: Temperature 99, pulse 106, blood pressure 129/71, respiratory rate 20, saturating 95% on room air. GENERAL: The patient was lying in bed, in no acute distress. Alert and oriented x4. CARDIOVASCULAR: Tachycardic rate, but regular rhythm. RESPIRATORY: Diminished breath sounds auscultated in all lung gibson, otherwise clear to auscultation bilaterally. ABDOMEN: Normoactive bowel sounds. Soft. Moderate to severe abdominal distention. Tenderness to palpation in the midepigastric and right upper quadrant. EXTREMITIES: No cyanosis or clubbing. Trace/1+ bilateral lower extremity edema extending up to mid hitchcock. LABORATORY DATA: CBC with white blood cell count of 7.6, hemoglobin 10.1, hematocrit 30.3, and platelets 60. Chemistry with sodium of 128, potassium 3.8, chloride 93, CO2 of 24, BUN 9, creatinine 0.89, glucose 70, AST 84, ALT 35, alkaline phosphatase 100, total bilirubin 8.1. IMAGING DATA: The patient underwent EGD and colonoscopy on May 17, 2019, which showed findings with LA grade D reflux mediated erosive esophagitis as well as a nonspecific diffuse gastropathy with biopsies of both of these regions still pending at this time. The colonoscopy showed 2 polyps as well as internal hemorrhoids without any evidence of malignancy. ASSESSMENT AND PLAN: The patient is a 58-year-old gentleman with past medical history of tobacco abuse, acid reflux, and a family history of colon cancer, presenting with right-sided abdominal pain, jaundice, abnormal GI imaging, and hematemesis. Hematemesis: The patient initially presented with a 2 to 3 week history of increased hematemesis, characterized as intermittently vomiting of blood tinged clear fluid. He underwent EGD on May 17, 2019, which showed severe reflux esophagitis with ulcerations pretty much along the entire esophagus with institution of PPI therapy twice daily. He has had a significant reduction in his acid reflux events nor has he had any episodes of hematemesis during the course of today. At this time, the likely explanation for his hematemesis is the severe esophagitis, which is currently responding to PPI therapy. Recommendations: 1. Would continue to trend his hemoglobin and hematocrit and transfuse as necessary to maintain a hemoglobin and hematocrit of 7/21. 2. Continue to monitor clinically for signs of active GI bleeding. 3. Would continue pantoprazole 40 mg b.i.d. Right-sided abdominal pain/distention: The patient is also presenting with increasing right-sided abdominal pain and abdominal distention over the last 2 to [address] scan on admission showing innumerable foci within the liver as well as increased intraabdominal fluid concerning for ascites from a possible malignant process. He underwent EGD and colonoscopy on May 17, 2019, which did not lend itself toward the establishment of a malignant type process, although biopsies of the upper GI tract are still pending at this time. At this time, further evaluation of any intraabdominal pathology would need to be performed with paracentesis, which was canceled today in light of fears of increased bleeding with procedure. Recommendations: 1. Would obtain a paracentesis for further evaluation of possible portal hypertension contributing to ascites formation. Abnormal GI imaging/jaundice: 1. The patient is presenting with CT imaging on admission showing multiple subcentimeter hyperdense foci within the liver. In addition to the presence of a moderate amount of ascites concerning for malignant process, he did undergo EGD and colonoscopy during this admission which did not lend itself toward that particular diagnosis. Further evaluation with paracentesis with cytology is indicated and hopefully will be performed tomorrow. Given his elevated bilirubin, thrombocytopenia, hyponatremia, and extensive alcohol history, the possibility of cirrhosis should be entertained. If he does have underlying cirrhosis, then the diagnosis of HCC is more likely. Alpha fetoprotein evaluation is pending at this time. Recommendations: 1. Would consider obtaining an MRI of the liver for further evaluation of these hypodense lesions in the biliary tree itself, if the paracentesis is unrevealing. 2. Would proceed with paracentesis tomorrow and followup of AFP. We will continue to follow. Please call with any questions. Job ID: [id number]
[2019-05-19 05:48] LABS: #Basophils 0.1 thou/uL (0.0-0.2); #Eosinphils 0.1 thou/uL (0.0-0.7); #Lymphocytes 1.8 thou/uL (1.20-3.40); #Neutrophils 5.1 thou/uL (1.40-6.50); %Basophils 0.6 % (0.0-1.0); %Eosinophils 0.8 % (0.0-10.0); %Lymphocytes 22.5 % (21.0-51.0); %Monocytes 11.9 % (0.0-10.0); %Neutrophils 64.2 % (42.0-75.0); Hemoglobin 9.2 g/dL (14.0-18.0); Mean Corpuscular Hemoglobin 35.4 pg (27.0-31.0); Mean Platelet Volume 8.2 fL (7.4-10.4); Platelet Count 65 thou/uL (130-400); RBC Distribution Width 13.6 % (11.5-14.5); Red Blood Cell (RBC) Count 2.61 mill/uL (4.70-6.10)
[2019-05-19 06:08] LABS: ALT (SGPT) 35 U/L (8-55); AST (SGOT) 87 U/L (5-34); Albumin 2.1 g/dL (3.5-5.0); Alkaline Phosphatase 88 U/L (40-150); Anion Gap 10 mmol/L (10-20); BUN (Urea Nitrogen) 11 mg/dL (8.4-25.7); Bilirubin, Total 9.4 mg/dL (0.2-1.2); Calc. Creatinine Clearance 87 mL/min (70-130); Calcium 7.7 mg/dL (7.8-10.44); Carbon Dioxide 29 mmol/L (22-29); Chloride 92 mmol/L (98-107); Estimated GFR-MDRD 74; Globulin 4.4 g/dL (2.4-3.5); Glucose 85 mg/dL (70-105); Potassium 3.4 mmol/L (3.5-5.1); Protein, Total 6.5 g/dL (6.0-8.3); Sodium 128 mmol/L (136-145)
[2019-05-19] MEDS ORDERED: Potassium Chloride 20 MEQ TAB PO SCH (06:30)
--- NOTE | 2019-05-19 08:58 | PDOC.FM ---
- Subjective Subjective: Pt is sleepy this morning. states that he did not get much sleep last night. After receiving his morphine pt became altered and noted hallucinations to his . We did not receive a call about this. Instructed that pt should not receive his prn pain medications unless he is actually in pain. stated that pt has always been very hairston, even when he has not been in the sun for a while. Also notes that when he is in the sun he tans very quickly and darkly. Outside room pt's daughter approached me and stated that the pt is a known alcoholic to her. She admitted she has not seen him in many years but when she lived with him as a child she noted her father was a daily heavy drinker and to her understanding was that way for a long time. - Objective Vital Signs & Weight: Vital Signs (12 hours) Temp Pulse Resp BP Pulse Ox 05/19/19 08:00 98.8 F 97 18 118/66 96 Weight Admit Weight 80.739 kg Weight 80.739 kg Result Diagrams: 05/19/19 05:28 05/19/19 05:28 Phys Exam - Physical Examination Pt is sleepy but arousable HEENT: moist MMs Respiratory: no wheezing, no rales, no rhonchi, clear to auscultation bilateral Hiccups Cardiovascular: RRR, no significant murmur Distended, resonant to percussion 1+ pitting edema Neurological: non-focal, moves all 4 limbs Skin: no rash Dx/Plan (1) Jaundice Code(s): R17 - UNSPECIFIED JAUNDICE Status: Acute (2) Transaminitis Code(s): R74.0 - NONSPEC ELEV OF LEVELS OF TRANSAMNS & LACTIC ACID DEHYDRGNSE Status: Acute (3) Ascites Code(s): R18.8 - OTHER ASCITES Status: Acute (4) Hematemesis of unknown cause Code(s): K92.0 - HEMATEMESIS Status: Acute (5) Coagulation defect Status: Acute (6) Hyponatremia Code(s): E87.1 - HYPO-OSMOLALITY AND HYPONATREMIA Status: Acute (7) Liver mass Code(s): R16.0 - HEPATOMEGALY, NOT ELSEWHERE CLASSIFIED Status: Acute (8) Thrombocytopenia Code(s): D69.6 - THROMBOCYTOPENIA, UNSPECIFIED Status: Acute (9) Macrocytic anemia Code(s): D53.9 - NUTRITIONAL ANEMIA, UNSPECIFIED Status: Acute - Plan Plan: 1. Liver masses w/ new onset ascites and jaundice * Hx: jaundice, abdominal pain, bowel & bladder incontinence, cough/emesis with blood, red urine, fatigue * FMH of Colon Cancer * Elevated LFT and bilirubin, elevated INR/PT/PTT * Abd/Pelvis CT: Numerous subcm hepatic hypodensities, intraperitoneal fluid, and mural thickening of the distal esophagus * FOBT: pending * EGD showing erosive esophagitis and other findings concerning for atul, diffuse gastric erythema - biopsies pending * Colonoscopy showing 2 polyps, one removed w/ subsequent bleeding requiring clip for hemostasis, remaining polyp left in situ 2/2 bleeding risk * GI Recs: Paracentesis today, AFP pending * MRI abdomen * Ammonia level today 2. Macrocytic anemia in setting of alcohol abuse hx & recent hematemesis Hgb: 10.7 upon presentation * Distal esophageal mural thickening - erosive esophagitis vs barretts * Will Monitor H&H, goal above 03/16 - currently stable @ 10.3/30.6 * Holding Anticoagulants * Peripheral Smear pending * Folate, pending * B12 twice upper limits of normal * Iron studies: iron normal, remaining panel all elevated suggesting iron overload 3. Iron overload * Serum iron: 97 * TIBC: 18 * % Sat: 118 * Ferritin: 3088 * DDx: w/ normal iron and remaining iron studies elevated: Liver disease ( alcoholic hepatitis, chronic hepatitis, NAFLD), hereditary hemochromatosis, ineffective erythropoesis (porphyrias, B12/folate deficiency, thalassemias, sideroblastic anemias) * In this pt most likely cause at this point is liver disease increasing iron studies vs less likely hereditary hemochromatosis w/ secondary liver disease * Will consider MRI abdomen to assess total liver iron as well as genetic testing for hemochromatosis 4. Transaminitis AST elevated, today 95. ALT nml at 36 * AST twice ALT levels consistent with alcoholic elevations in liver enzymes, cont monitor * Hepatitis B and C - negative * HIV pending * Mental Retardation Aide appropriate alcohol consumption 5. Hyperbilirubinemia w/ jaundice * EGD today w/ abdominal MRI to follow - obstructive biliary vs intrinsic hepatic etiology vs less likely RBC turnover * Fractionated bilirubin - showed elevation of both direct and indirect w/ greater proportional elevation in direct 6. Thrombocytopenia in setting of acute vs chronic liver disease Plt: 66 * Cont to monitor * Avoid anticoagulants 7. Hyponatremia Na: 132 * LR @ 100 Condition: Stable Diet: NPO DVT PPX: Holding for now GI PPX: Protonix Activity: Ambulate with Assist Precautions: Fall PCP: CC Code Status: DNR-DNI Dispo: Inpt, EGD, colonoscopy, and dx paracentesis today per GI recs to evaluate etiology of hematemesis and new onset ascites. Addendum - Attending - Attending Attestation Date/Time: 05/19/19 8045 I personally evaluated the patient and discussed the management with Dr. Moe. I agree with the History, Examination, Assessment and Plan documented above with any addition or exceptions noted below. Patient here with acute liver failure of unknown etiology. He has liver disease associated coagulopathy, thrombocytopenia, jaundice, and ascites. We are awaiting IR guided paracentesis for fluid studies and are obtaining MRI of the liver to further characterize. His ferritin is very high and there is some history suggestive of hemochromotosis, will further investigate. GI on board. This could also be malignancy related due to findings on CT scan. AFP pending. Hyponatremia which portends a poor prognosis in the setting of liver disease. There is also question as to his alcohol consumption history. Further mgmt pending further workup.
[2019-05-19] MEDS: Ondansetron ODT 4 MG TAB PO PRN (09:17)
[2019-05-19] MEDS: Pantoprazole 40 MG VIAL IVP SCH ×2 (09:20→21:08)
[2019-05-19 10:35] LABS: INR-International Normal Ratio 2.3; PTT 45.8 SEC (22.9-36.1)
--- NOTE | 2019-05-19 13:19 | PRG ---
DATE OF SERVICE: 05/19/2019 REASON FOR CONSULTATION: Jaundice, abnormal GI imaging, and hematemesis. SUBJECTIVE: The patient states that he is doing relatively the same as he did yesterday, but did not have any episodes of hematemesis and states that his acid reflux symptoms have improved as well. He continues to have abdominal distention as well as increased abdominal discomfort associated with this. Currently, he denies any nausea, vomiting, fevers, chills, hematemesis, melena, or hematochezia. He did have a bowel movement earlier this morning that was normal in coloration. OBJECTIVE: VITAL SIGNS: Temperature 98.8, pulse 97, blood pressure 118/66, respiratory rate 18, saturating 96% on room air. GENERAL: The patient was lying in bed, in no acute distress. Alert and oriented x4. CARDIOVASCULAR: Regular rate and rhythm. RESPIRATORY: Diminished breath sounds auscultated in all lung gibson. ABDOMEN: Normoactive bowel sounds. Soft. Moderate to severe abdominal distention. No tenderness to palpation. EXTREMITIES: No cyanosis or clubbing. Trace to 1+ bilateral lower extremity edema extending up to mid hitchcock. LABORATORY DATA: CBC with a white blood cell count of 8.0, hemoglobin 9.2, hematocrit 27.2, platelets 65. INR 2.3. Chemistry with a sodium of 128, potassium 3.4, chloride 92, CO2 of 29, BUN 11, creatinine 1.03, glucose 85, AST 87, ALT 35, alkaline phosphatase 88, total bilirubin 9.4, AST 3.9. HIV nonreactive. Hepatitis B and C negative. IMAGING DATA: No current GI imaging is available for review. ASSESSMENT AND PLAN: The patient is a 58-year-old gentleman with past medical history of tobacco abuse, acid reflux, and a family history of colon cancer (mother diagnosed at the age of 48), presenting with right-sided abdominal pain, jaundice, abnormal GI imaging and hematemesis. Hematemesis: The patient initially presented with 2 to 3-week history of increased hematemesis, characterized as blood tinged, clear mucus/fluid. He underwent EGD on May 17, 2019, which showed severe LA grade D reflux esophagitis that has been responding to PPI therapy since. Since the institution of PPI b.i.d., he has not had any further episodes of hematemesis. Recommendations: 1. Would continue pantoprazole 40 mg b.i.d. 2. Continue to monitor clinically for signs of active GI bleeding. 3. Continue to trend his H and H. Abdominal distention: The patient also has been having progressively worsening abdominal distention over the last 2 to 3 weeks prior to admission with a CT scan showing innumerable subcentimeter foci within the liver as well as increased intraabdominal fluid, concerning for ascites from a possible malignant process. EGD and colonoscopy obtained during this admission did not establish a diagnosis. At this time, paracentesis needs to be performed to further characterize this fluid and could yield the potential diagnostic source. Recommendations: 1. Would obtain paracentesis today for further evaluation of possible portal hypertension versus malignant process contributing to ascites formation. Abnormal GI imaging/jaundice: On admission, the patient was noted to have a significantly elevated total bilirubin as well as imaging showing innumerable foci within the liver concerning for malignant process. He did undergo both EGD and colonoscopy during this admission, which did not yield any particular abnormalities with biopsies pending at this point. At this time, paracentesis is indicated to help further guide therapy and may be able to elaborate whether this was portal hypertension due to cirrhosis versus a malignant-type process. Given his elevated bilirubin, thrombocytopenia, hyponatremia, and extensive alcohol history, the possibility of cirrhosis should be entertained. However, AST is normal at this time, but does not necessarily rule out the presence of hepatocellular carcinoma. Recommendations: 1. Would consider obtaining an MRI of the liver with multiphasic study for further evaluation of these liver lesions. 2. Would proceed with paracentesis as above. We will continue to follow. Please call with any questions. Job ID: [id number]
[2019-05-19] MEDS ORDERED: Sodium Bicarbonate 2.5 MEQ/5 ML VIAL ONE (15:08)
--- NOTE | 2019-05-19 16:02 | ULT ---
Sonographic guided paracentesis HISTORY: Ascites. FINDINGS: After explaining the procedure and answering all questions, limited sonographic imaging of the abdomen shows moderate amount of free fluid. Sterile technique, buffered local anesthesia, sonographic guidance, and a right anterolateral approach were used to carefully advance a 19-gauge [place] eh needle and catheter into the free fluid. Catheter was left to drain a total volume of 2.0 L dark slightly cloudy yellow liquid. Needle was removed. Small amount of fluid remains. Patient tolerated t he procedure well and was returned in unchanged condition. IMPRESSION: Technically successful sonographic guided paracentesis. Pathology is pending.
[2019-05-19 16:42] LABS: RBC Count-Automated (BF) 1642 /cumm; WBC/Nucleated-Auto (BF) 192 uL
[2019-05-19 17:07] LABS: BF Color Yellow; Body Fluid Source Ascites Body Fluid; Clarity Hazy (Clear); Tube # EDTA
[2019-05-19 17:10] LABS: BF Segmented Neutrophils 36 %; Cell Count Non Hematic 45 %; Lymphocytes 18 %
[2019-05-19] MEDS: Nicotine 21 MG PATCH TD SCH (21:08)
[2019-05-20 06:14] LABS: #Lymphocytes 1.7 thou/uL (1.20-3.40); #Monocytes 0.9 thou/uL (0.11-0.59); #Neutrophils 4.7 thou/uL (1.40-6.50); %Basophils 0.5 % (0.0-1.0); %Eosinophils 0.6 % (0.0-10.0); %Lymphocytes 22.6 % (21.0-51.0); %Monocytes 12.4 % (0.0-10.0); %Neutrophils 63.8 % (42.0-75.0); Hemoglobin 10.1 g/dL (14.0-18.0); Mean Corpuscular HGB CONC 33.4 g/dL (32.0-36.0); Mean Corpuscular Hemoglobin 34.8 pg (27.0-31.0); Mean Platelet Volume 8.1 fL (7.4-10.4); Platelet Count 68 thou/uL (130-400); RBC Distribution Width 13.8 % (11.5-14.5); White Blood Cell (WBC) Count 7.3 thou/uL (4.8-10.8)
[2019-05-20 06:17] LABS: INR-International Normal Ratio 2.4; PTT 48.2 SEC (22.9-36.1); Prothrombin Time 25.8 SEC (12.0-14.7)
[2019-05-20 06:31] LABS: ALT (SGPT) 37 U/L (8-55); AST (SGOT) 86 U/L (5-34); Alkaline Phosphatase 84 U/L (40-150); Anion Gap 8 mmol/L (10-20); BUN (Urea Nitrogen) 9 mg/dL (8.4-25.7); Bilirubin, Total 10.1 mg/dL (0.2-1.2); Calc. Creatinine Clearance 103 mL/min (70-130); Calcium 7.6 mg/dL (7.8-10.44); Carbon Dioxide 27 mmol/L (22-29); Chloride 93 mmol/L (98-107); Estimated GFR-MDRD 90; Globulin 4.2 g/dL (2.4-3.5); Glucose 72 mg/dL (70-105); Potassium 3.4 mmol/L (3.5-5.1); Protein, Total 6.2 g/dL (6.0-8.3); Sodium 125 mmol/L (136-145)
--- NOTE | 2019-05-20 08:04 | PDOC.FM ---
- Subjective Subjective: Pt states his abdominal distention is better today and he is feeling better. Denies any n/v/d, fever, chills, SOB. Notes continued hiccups. Is eager to start eating again. - Objective Vital Signs & Weight: Vital Signs (12 hours) Temp Pulse Resp BP Pulse Ox 05/20/19 07:48 98.7 F 95 18 117/71 95 05/20/19 04:26 98.8 F 92 16 152/73 H 94 L 05/20/19 00:25 98.9 F 94 16 127/62 94 L 05/20/19 00:00 98.9 F 94 16 127/62 Weight Admit Weight 80.739 kg Weight 80.739 kg Result Diagrams: 05/20/19 05:34 05/20/19 05:34 Phys Exam - Physical Examination Constitutional: NAD Scleral icterus ntoed Neck: full ROM Respiratory: no wheezing, no rales, no rhonchi, clear to auscultation bilateral Cardiovascular: RRR, no significant murmur Distended, resonant, diffusely tender Musculoskeletal: pulses present 1+ pitted edema to bilateal LE Neurological: non-focal Psychiatric: normal affect, A&O x 3 Dx/Plan (1) Jaundice Code(s): R17 - UNSPECIFIED JAUNDICE Status: Acute (2) Transaminitis Code(s): R74.0 - NONSPEC ELEV OF LEVELS OF TRANSAMNS & LACTIC ACID DEHYDRGNSE Status: Acute (3) Ascites Code(s): R18.8 - OTHER ASCITES Status: Acute (4) Hematemesis of unknown cause Code(s): K92.0 - HEMATEMESIS Status: Acute (5) Coagulation defect Status: Acute (6) Hyponatremia Code(s): E87.1 - HYPO-OSMOLALITY AND HYPONATREMIA Status: Acute (7) Liver mass Code(s): R16.0 - HEPATOMEGALY, NOT ELSEWHERE CLASSIFIED Status: Acute (8) Thrombocytopenia Code(s): D69.6 - THROMBOCYTOPENIA, UNSPECIFIED Status: Acute (9) Macrocytic anemia Code(s): D53.9 - NUTRITIONAL ANEMIA, UNSPECIFIED Status: Acute - Plan Plan: 1. Liver masses w/ new onset ascites and jaundice * Hx: jaundice, abdominal pain, bowel & bladder incontinence, cough/emesis with blood, red urine, fatigue * FMH of Colon Cancer * Elevated LFT and bilirubin, elevated INR/PT/PTT * Abd/Pelvis CT: Numerous subcm hepatic hypodensities, intraperitoneal fluid, and mural thickening of the distal esophagus * EGD showing erosive esophagitis and other findings concerning for atul, diffuse gastric erythema - biopsies pending * Colonoscopy showing 2 polyps, one removed w/ subsequent bleeding requiring clip for hemostasis, remaining polyp left in situ 2/2 bleeding risk * GI Recs: Paracentesis - current ascitic fluid results suggest * MRI abdomen could not be completed d/t pt unable to hold breath with his hiccups * Radiologist recommended CT abdomen w/ and w/o contrast with liver mass protocol * Ammonia level borderline elevated, mentation improved today w/o morphine 2. Macrocytic anemia in setting of alcohol abuse hx & recent hematemesis Hgb: 10.7 upon presentation * Distal esophageal mural thickening - erosive esophagitis vs barretts * Will Monitor H&H, goal above 03/16 - currently stable @ 10.3/30.6 * Holding Anticoagulants * Peripheral Smear pending * Folate, pending * B12 twice upper limits of normal * Iron studies: iron normal, remaining panel all elevated suggesting iron overload 3. Iron overload * Serum iron: 97 * TIBC: 18 * % Sat: 118 * Ferritin: 3088 * DDx: w/ normal iron and remaining iron studies elevated: Liver disease ( alcoholic hepatitis, chronic hepatitis, NAFLD), hereditary hemochromatosis, ineffective erythropoesis (porphyrias, B12/folate deficiency, thalassemias, sideroblastic anemias) * In this pt most likely cause at this point is liver disease increasing iron studies vs less likely hereditary hemochromatosis w/ secondary liver disease * Will consider MRI abdomen to assess total liver iron as well as genetic testing for hemochromatosis 4. Transaminitis AST elevated, today 87. ALT nml at 35 * AST twice ALT levels consistent with alcoholic elevations in liver enzymes, cont monitor * Hepatitis B and C - negative * HIV negative * [employer] Work[employer] appropriate alcohol consumption 5. Hyperbilirubinemia w/ jaundice * Continually rising bilirubin * Fractionated bilirubin - showed elevation of both direct and indirect w/ greater proportional elevation in direct 6. Thrombocytopenia in setting of acute vs chronic liver disease Plt: 66 * Cont to monitor * Avoid anticoagulants 7. Hyponatremia Na: 125 * LR @ 100 * Likely 2/2 to combination of worsening liver disease and decreased PO intake Condition: Stable Diet: NPO DVT PPX: Holding for now GI PPX: Protonix Activity: Ambulate with Assist Precautions: Fall PCP: CC Code Status: DNR-DNI Dispo: Inpt, EGD, colonoscopy, CT abdomen today. Addendum - Attending - Attending Attestation Date/Time: 05/20/19 7336 I personally evaluated the patient and discussed the management with Dr. Moe. I agree with the History, Examination, Assessment and Plan documented above with any addition or exceptions noted below. Patient here with new onset hepatic failure of unknown etiology, though alcoholic cirrhosis is absolutely on differential. He could not undergo liver MRI and so will undergo CT dedicated to liver today. His labs are somewhat worse today. GI on board. He is more coagulopathic. Complete ascite fluid studies pending.
[2019-05-20] MEDS ORDERED: ISOVUE-370 76%-LOCM 1 ML ONE (09:01)
--- NOTE | 2019-05-20 09:11 | MRI ---
EXAM: MRI of the abdomen without contrast COMPARISON: None HISTORY: Liver masses and liver failure. Elevated iron studies. TECHNIQUE: Multiplanar multi sequence MR images were taken of the abdomen without IV contrast. Contr ast was not administered as too much motion artifact was seen on the precontrast images. FINDINGS: This exam is extremely limited secondary to respiratory motion artifact. Liver: The liver is slightly nodular in contour which may represent cirrhosis.: No focal liver lesion s or intrahepatic ductal dilatation. Normal signal without dropout on out of phase images. There is a moderate amount of ascites. Gallbladder: 2 small filling defects in the gallbladder neck likely represent gallstones. Common bile duct: Normal caliber without filling defects Adrenal glands: Unremarkable. Kidneys: No hydronephrosis or focal renal lesions. Spleen: Unremarkable. Pancreas: Unremarkable. Retroperitoneum: No enlarged lymph nodes Bones: No marrow signal abnormality. IMPRESSION: 1. Cirrhosis with ascites. No obvious liver lesions can be seen on this limited examination. 2. Cholelithiasis
[2019-05-20] MEDS: Pantoprazole 40 MG VIAL IVP SCH ×2 (09:27→21:44)
--- NOTE | 2019-05-20 13:56 | CT ---
CT ABDOMEN AND PELVIS WITH AND WITHOUT IV CONTRAST: INDICATIONS: History of chronic liver disease with enumerable hepatic hypodensities. The patient attempted an MRI examination earlier today that was unsuccessful due to respiratory motion artifact and the patient's inability for a breath hold. FINDINGS: There are small bilateral pleural effusions. A small hypodensity collection is seen within the fundus of the stomach that persists on all phases. This was not present on the comparison examination dated 05/16/2019, as there was much more enteric c ontrast administered to the patient. This was likely related to a small amount of fluid present with a rugal fold. There is a small hiatal hernia. There are paraesophageal varicosities. There is a lobulated contour t o the liver, suspicious for cirrhosis. There are numerous punctate hypodensities seen diffusely throu ghout the liver that do not appear to enhance. There is a small gallstone within a moderately distend ed gallbladder. The pancreas and right adrenal glands are normal appearing. There is a fat-containing 3.2 cm mass in the left adrenal gland, consistent with a myelolipoma. The kidneys and spleen appear within normal li mits. There is mild to moderate ascites. The bladder is partially decompressed. Small and large bowel demon strate some suggested wall thickening through the level of the rectum. The small bowel is of normal c aliber. IMPRESSION: 1. Diffuse wall thickening involving the colon and rectum, suspicious for a long segment proctocoliti s. This can be infectious or inflammatory in etiology. 2. Cirrhotic morphology of the liver with numerous nonenhancing hypodensities suspicious for multiple small regenerative nodules. Differential considerations also include small, less vigorously enhanci ng metastatic disease. Would recommend a short term followup in six to eight weeks to document stabi lity. 3. Small bilateral pleural effusion and mild to moderate ascites. 4. Cholelithiasis with moderate distention of the gallbladder. 5. Chronic findings as above. POS: [facility]
[2019-05-20 16:09] LABS: Folate,Hemolysate 213.1 ng/mL (Not Estab.); Hematocrit 27.1 % (37.5-51.0); RBC Folate Test Component 786 ng/mL (>498)
[2019-05-20 18:07] LABS: Hemoglobin 10.2 g/dL (14.0-18.0); Mean Corpuscular HGB CONC 33.5 g/dL (32.0-36.0); Mean Corpuscular Hemoglobin 34.9 pg (27.0-31.0); Mean Platelet Volume 8.2 fL (7.4-10.4); Platelet Count 75 thou/uL (130-400); RBC Distribution Width 14.2 % (11.5-14.5); Red Blood Cell (RBC) Count 2.93 mill/uL (4.70-6.10); White Blood Cell (WBC) Count 9.1 thou/uL (4.8-10.8)
[2019-05-20 18:20] LABS: Anion Gap 13 mmol/L (10-20); BUN (Urea Nitrogen) 10 mg/dL (8.4-25.7); CRP (Inflammatory) 2.89 mg/dL (= or < 0.5); Calc. Creatinine Clearance 85 mL/min (70-130); Calcium 7.6 mg/dL (7.8-10.44); Carbon Dioxide 23 mmol/L (22-29); Chloride 91 mmol/L (98-107); Estimated GFR-MDRD 71; Glucose 107 mg/dL (70-105); Potassium 3.5 mmol/L (3.5-5.1); Sodium 123 mmol/L (136-145)
[2019-05-20 19:24] LABS: Band 14 % (5-11); Eosinophils 2 % (0-10); Lymphocytes 10 % (21-51); MDiff Complete? YES; Macrocytosis SLIGHT = 6-15 cells (100X) (0-5/hpf); Monocytes 4 % (0-10); Neutrophil 70 % (42-75); Platelet Morphology Comment Appears Decreased; Polychromasia SLIGHT = 2-3 cells (100X) (0-2/hpf); Target Cells SLIGHT = 2-5 cells (100X) (0-1/hpf)
[2019-05-20] MEDS: Nicotine 21 MG PATCH TD SCH (21:34)
[2019-05-20 22:02] LABS: Base Excess (BEa) 3.1 mEq/L (-2.0 to +3.0); CO2 Tension 28.9 mmHg (35.0-45.0); Calcium, Ionized 1.03 mmol/L (1.12-1.30); Carboxyhemoglobin (COHb) 1.1 gm% (0.0-3.0); Hemoglobin (Hb) 10.2 g/dL (14.0-18.0); O2 Tension (PaO2) 67.5 mmHg (> 80.0); Potassium - ABG Lab 3.51 mmol/L (3.70-5.30)
--- NOTE | 2019-05-20 22:02 | PRG ---
DATE OF SERVICE: 05/20/2019 REASON FOR CONSULTATION: Jaundice, abnormal GI imaging and hematemesis. SUBJECTIVE: The patient was able to go under paracentesis yesterday with approximately 2 L of darker colored fluid removed. The patient did feel better immediately after the paracentesis with increased ability to breathe and decreased shortness of breath. However, overnight, the patient did exhibit a disruption in his sleep-wake cycles. According to his , where he has been roughly sleeping during most of the day and has been able to sleep at night, keeping his up at night. Upon evaluating the patient today, he was clearly disoriented and attempting to get out of bed for unknown reasons. When assessing his sensorium, he was only alert and oriented x2, which was a definite change from his baseline mental status. He was able to answer most questions effectively and currently denies any nausea, vomiting, fevers, chills, hematemesis, melena, hematochezia, or abdominal pain. OBJECTIVE: VITAL SIGNS: Temperature 99.1, pulse 110, blood pressure 155/78, respiratory rate 16, and saturating 100% on room air. GENERAL: The patient was lying in bed, in no acute distress. Alert and oriented x2. CARDIOVASCULAR: Tachycardic rate, but regular rhythm. RESPIRATORY: Diminished breath sounds auscultated in the bilateral lower lung gibson. ABDOMEN: Normoactive bowel sounds. Soft. Moderate abdominal distention. No tenderness to palpation. Positive shifting dullness. EXTREMITIES: No cyanosis or clubbing. Trace bilateral lower extremity edema extending up to mid hitchcock. LABORATORY DATA: CBC with a white blood cell count of 7.3, hemoglobin 10.1, hematocrit 30.2, and platelets 68. Chemistry with a sodium of 125, potassium 3.4, chloride 93, CO2 of 27, BUN 9, creatinine 0.87, and glucose 72. IMAGING DATA: No current GI imaging is available for review. ASSESSMENT AND PLAN: The patient is a 58-year-old gentleman with past medical history of tobacco abuse, acid reflux, family history of colon cancer, and alcohol abuse, presenting with right-sided abdominal pain, jaundice, abnormal gastrointestinal imaging and hematemesis. Hematemesis: The patient initially presented with a 2 to 3 week history of increased hematemesis, characterized as blood-tinged clear mucus/fluid that he would spit up. He underwent EGD on May 17, 2019, which showed severe LA grade D reflux esophagitis and has been responding to PPI therapy since then with no further episodes of hematemesis. Esophageal varices not seen during the upper endoscopy nor were there evidence of gastric varices as well. RECOMMENDATIONS 1. Would continue pantoprazole 40 mg b.i.d. 2. Continue to monitor clinically for signs of active GI bleeding. 3. Continue to trend his H and H. Abdominal distention: The patient also presenting with progressively worsening abdominal distention over the last 2 to [address] scan showing innumerable subcentimeter foci within the liver as well as increase in the intraabdominal fluid. He underwent paracentesis on May 19, 2019, with fluid albumin pending at this time, but there was no evidence of spontaneous bacterial peritonitis nor is the ascitic fluid related to cardiac dysfunction. At this time, given his other GI imaging, it seems more consistent with cirrhosis with portal hypertension. Diuretic therapy would normally be instituted at this point given his [id number] hyponatremia. This may need to be corrected first prior to institution of diuretic therapy or institution of hypertonic saline in conjunction with diuretic management. RECOMMENDATIONS 1. Would hold on any diuretic therapy at this time given [id number] hyponatremia. 2. Fluid restriction is not recommended at this time for hyponatremia in patients with cirrhosis. 3. If the patient's hyponatremia worsens, we could consider administration of a gentle IV infusion of hypertonic saline in conjunction with loop diuretics, but the patient will need to be transferred to [facility] for this to happen. Abnormal GI imaging/jaundice: On admission, the patient was noted to have a significantly elevated total bilirubin as well as imaging showing enumerable foci within the liver concerning for malignant process. He did undergo both EGD and colonoscopy during this admission, which did not show any particular abnormalities that would lend itself toward the metastatic disease. Paracentesis at this time is more consistent with portal hypertension secondary to cirrhosis rather than a malignant type process (although cytology is still pending at this time). CT scan of the abdomen and pelvis was performed on May 20, 2019, with a multiphasic study, which showed no arterial enhancement of the liver lesions. The rather seem to be more related to regenerative nodules rather than HCC. His AFP is currently normal, making the likelihood of HCC less. At this time, the likelihood of cirrhosis being the causative etiology of his hyponatremia, hyperbilirubinemia, thrombocytopenia, and elevated INR is most likely cirrhosis secondary to extensive alcohol abuse, especially given the greater than 2:1 Distribution of AST over ALT. With the slowly rising INR, decreasing hyponatremia, slowly rising hyperbilirubinemia and the appearance of worsening hepatic encephalopathy, it is a harbinger of liver failure with liver transplantation being the more definitive treatment for this condition. RECOMMENDATIONS 1. will be transferred to a liver transplant center for further evaluation for possible liver transplantation given his labs indicative of impending liver failure secondary to cirrhosis. 2. Midodrine is not exactly indicated at this time given normal renal function and low concern for hepatorenal syndrome. We will continue to follow. Please call with any questions. Job ID: [id number]
[2019-05-20 22:05] LABS: pH, Arterial 7.56 (7.35-7.45)
[2019-05-20 22:06] LABS: ALV-art Gradient 46.105 (0-20); Puncture Site RRA
[2019-05-21 04:24] LABS: INR-International Normal Ratio 2.4; PTT 48.1 SEC (22.9-36.1); Prothrombin Time 25.6 SEC (12.0-14.7)
[2019-05-21 04:41] LABS: ALT (SGPT) 44 U/L (8-55); AST (SGOT) 87 U/L (5-34); Alkaline Phosphatase 85 U/L (40-110); Anion Gap 11 mmol/L (10-20); BUN (Urea Nitrogen) 10 mg/dL (8.4-25.7); Bilirubin, Total 10.7 mg/dL (0.2-1.2); Calc. Creatinine Clearance 85 mL/min (70-130); Calcium 7.7 mg/dL (7.8-10.44); Carbon Dioxide 28 mmol/L (22-29); Chloride 92 mmol/L (98-107); Estimated GFR-MDRD 72; Globulin 4.3 g/dL (2.4-3.5); Glucose 86 mg/dL (70-105); Potassium 3.5 mmol/L (3.5-5.1); Protein, Total 6.3 g/dL (6.0-8.3); Sodium 127 mmol/L (136-145)
[2019-05-21 04:45] LABS: Band 1 % (5-11); Hemoglobin 9.6 g/dL (14.0-18.0); Hypochromia SLIGHT = 6-15 cells (100X) (0-5/hpf); Lymphocytes 19 % (21-51); MDiff Complete? YES; Macrocytosis SLIGHT = 6-15 cells (100X) (0-5/hpf); Mean Corpuscular HGB CONC 33.6 g/dL (32.0-36.0); Mean Platelet Volume 7.6 fL (7.4-10.4); Monocytes 3 % (0-10); Neutrophil 77 % (42-75); Platelet Count 71 thou/uL (130-400); Platelet Morphology Comment Appears Decreased; RBC Distribution Width 14.2 % (11.5-14.5); Red Blood Cell (RBC) Count 2.73 mill/uL (4.70-6.10); White Blood Cell (WBC) Count 8.1 thou/uL (4.8-10.8)
--- NOTE | 2019-05-21 06:33 | PDOC.FM ---
- Subjective Subjective: Pt resting this morning as he awaits transfer. stated that after receiving his medications last night his mentation was much improved and he was not as agitated or disoriented. - Objective Vital Signs & Weight: Vital Signs (12 hours) Temp Pulse Resp BP Pulse Ox 05/21/19 04:38 98.7 F 93 16 121/74 97 05/21/19 00:32 98.7 F 97 16 119/73 94 L 05/20/19 20:00 100 05/20/19 19:34 99.1 F 110 H 16 155/78 H 100 Weight Admit Weight 80.739 kg Weight 80.739 kg Result Diagrams: 05/21/19 03:57 05/21/19 03:57 Phys Exam - Physical Examination Constitutional: NAD resting sleral icterus few crackles in bilat bases Cardiovascular: RRR, no significant murmur Distended, fluid wave Musculoskeletal: pulses present, edema present (1+ bilat LE) Deviation from normal: jaundice Dx/Plan (1) Acute liver failure Status: Acute (2) Transaminitis Code(s): R74.0 - NONSPEC ELEV OF LEVELS OF TRANSAMNS & LACTIC ACID DEHYDRGNSE Status: Acute (3) Ascites Code(s): R18.8 - OTHER ASCITES Status: Acute (4) Hematemesis of unknown cause Code(s): K92.0 - HEMATEMESIS Status: Acute (5) Coagulation defect Status: Acute (6) Hyponatremia Code(s): E87.1 - HYPO-OSMOLALITY AND HYPONATREMIA Status: Acute (7) Thrombocytopenia Code(s): D69.6 - THROMBOCYTOPENIA, UNSPECIFIED Status: Acute (8) Macrocytic anemia Code(s): D53.9 - NUTRITIONAL ANEMIA, UNSPECIFIED Status: Acute (9) Cirrhosis of liver Code(s): K74.60 - UNSPECIFIED CIRRHOSIS OF LIVER Status: Suspected Qualifiers: Hepatic cirrhosis type: alcoholic cirrhosis - Plan Plan: 1. Acute liver failure in the setting of likely cirrhosis * Worsening LFT and bilirubin, elevated INR/PT/PTT * MRI abdomen could not be completed d/t pt unable to hold breath with his hiccups * Radiologist recommended CT abdomen w/ and w/o contrast with liver mass protocol * Abd/Pelvis CT: Cirrhotic changes of the liver with regenerative nodules. proctocolitis infectious vs inflammatory * GI Recs: Paracentesis - current ascitic fluid results suggest portal hypertension * Ammonia level increasing, lactulose started yesterday w/ improved mentation * Adding thiamine and folate supplement 2. Macrocytic anemia in setting of alcohol abuse hx & recent hematemesis Hgb: 10.7 upon presentation * Distal esophageal mural thickening - erosive esophagitis seen on EGD * Colonoscopy showing 2 polyps, one removed w/ subsequent bleeding requiring clip for hemostasis, remaining polyp left in situ 2/2 bleeding risk * Will Monitor H&H, goal above 03/16 - currently stable @ 10.3/30.6 * Holding Anticoagulants * Peripheral Smear pending * RBC Folate, pending * B12 twice upper limits of normal * Iron studies: iron normal, remaining panel all elevated suggesting iron overload 3. Iron overload * Serum iron: 97 * TIBC: 18 * % Sat: 118 * Ferritin: 3088 * DDx: w/ normal iron and remaining iron studies elevated: Liver disease ( alcoholic hepatitis, chronic hepatitis, NAFLD), hereditary hemochromatosis, ineffective erythropoesis (porphyrias, B12/folate deficiency, thalassemias, sideroblastic anemias) * In this pt most likely cause at this point is liver disease increasing iron studies vs less likely hereditary hemochromatosis w/ secondary liver disease * Will consider MRI abdomen to assess total liver iron as well as genetic testing for hemochromatosis 4. Hyperbilirubinemia w/ jaundice * Continually rising bilirubin * Fractionated bilirubin - showed elevation of both direct and indirect w/ greater proportional elevation in direct 5. Thrombocytopenia in setting of acute vs chronic liver disease * Cont to monitor * Avoid anticoagulants 6. Hyponatremia Na: 125 * LR @ 100 * Likely 2/2 to combination of worsening liver disease and decreased PO intake Condition: Stable Diet: Cardiac DVT PPX: Holding for now GI PPX: Protonix Activity: Ambulate with Assist Precautions: Fall PCP: CC Code Status: DNR-DNI Dispo: Inpt, pt with acutely worsening liver failure. Dr. Oron[place] and I discussed last night that pt requires higher level of care and assessment for liver transplantation. Transfer center has been contacted and is reaching out currently. Addendum - Attending - Attending Attestation Date/Time: 05/21/19 1152 I personally evaluated the patient and discussed the management with Dr. Moe. I agree with the History, Examination, Assessment and Plan documented above with any addition or exceptions noted below. Patient here with acute liver failure likely 2/2 cirrhosis. He is worsening. WE are working with GI to get patient transferred to liver transplant team for further evaluation.
[2019-05-21] MEDS ORDERED: Spironolactone 25 MG TAB PO SCH (08:00)
[2019-05-21] MEDS: Pantoprazole 40 MG VIAL IVP SCH ×2 (09:11→20:34)
[2019-05-21 09:16] LABS: Bilirubin 2+ (Negative); Blood, Urine Negative (Negative); Clarity Clear (Clear); Glucose, Urine (Dipstick) Normal (Negative); Leukocyte Negative Leu/uL (Negative); Nitrite Negative (Negative); Protein, Urine (Dipstick) 10 mg/dL (Neg-Trace); Squamous Epithelial 0-3 HPF (0-3); Urobilinogen Greater than 12 mg/dL (Less than 2); WBC/HPF 0-3 HPF (0-3)
[2019-05-21 09:51] LABS: Bacteria/HPF Rare-Few HPF (None Seen)
--- NOTE | 2019-05-21 20:04 | PRG ---
DATE OF SERVICE: 05/21/2019 REASON FOR CONSULTATION: Jaundice, abnormal GI imaging, hematemesis, and cirrhosis. SUBJECTIVE: The patient states that he is doing much better today after having multiple bowel movements with the administration of lactulose. He has had roughly 5 to 6 semi-solid liquid bowel movements during the course of the day today, but adds that his cognition has improved. He did have less difficulty getting asleep last night as well per his . He has not been able to ambulate due to increased weakness of his lower extremities, but has not been working with physical therapy just yet. He denies any nausea, vomiting, fevers, chills, hematemesis, melena, hematochezia, or abdominal pain. OBJECTIVE: VITAL SIGNS: Temperature 98.7, pulse 97, blood pressure 109/65, respiratory rate 16, saturating 94% on room air. GENERAL: The patient was lying in bed, in no acute distress. Alert and oriented x4. CARDIOVASCULAR: Regular rate and rhythm. RESPIRATORY: Diminished breath sounds auscultated in the bilateral lower lung gibson. ABDOMEN: Normoactive bowel sounds. Soft. Moderate abdominal distention. No tenderness to palpation. Positive shifting dullness. EXTREMITIES: No cyanosis, clubbing, or edema. LABORATORY DATA: CBC with a white blood cell count of 8.1, hemoglobin 9.6, hematocrit 28.5, platelets 71. INR 2.4. Chemistry with a sodium of 127, potassium 3.5, chloride 92, CO2 of 28, BUN 10, creatinine 1.05, glucose 86. AST 87, ALT 44, alkaline phosphatase 85, total bilirubin 10.7. IMAGING DATA: No current GI imaging is available for review. ASSESSMENT AND PLAN: The patient is a 58-year-old gentleman with past medical history of tobacco abuse, acid reflux, alcohol abuse, and family history of colon cancer, presenting with right-sided abdominal pain, jaundice, abnormal gastrointestinal imaging, and hematemesis secondary to decompensated cirrhosis and severe reflux esophagitis. Hematemesis: The patient initially presented with a 2 to 3 week history of increased hematemesis, characterized as blood tinged clear vomitus with small volume. He underwent esophagogastroduodenoscopy on May 17, 2019, which showed severe LA grade D reflux esophagitis and has been responding PPI therapy ever since. No esophageal varices or gastric varices were seen on the upper endoscopy. RECOMMENDATIONS: 1. Would continue pantoprazole 40 mg b.i.d. and continue on this regimen for at least the next 8 to 12 weeks. 2. Continue to monitor clinically for signs of active GI bleeding. 3. Continue to trend his H and H. Cirrhosis: The patient is presenting with cirrhotic morphology on CT scan with what appears to be regenerative nodules, hyperbilirubinemia, thrombocytopenia, elevated INR, and hyponatremia all consistent with a diagnosis of cirrhosis. He is currently presenting with decompensated disease given the onset of ascites and more recently hepatic encephalopathy with his current MELD score of 30 and a Child-Thompson classification C. Paracentesis performed during this admission is most consistent with portal hypertension rather than a malignant type process (although cytology is still pending at this time). AFP obtained during this admission was also normal. Over the last 24 to 48 hours with his slowly rising INR, decreasing hyponatremia, slowly rising hyperbilirubinemia, and worsening hepatic encephalopathy, it was a strong indicator for progression of liver failure in light of cirrhosis of the liver. Attempts to transfer the patient to a tertiary care center for evaluation prior to liver transplant have been successful thus far primarily due to insurance reasons. Case Management is currently working on establishing of funding source. RECOMMENDATIONS: 1. Would recommend transferring to a tertiary care center with a liver transplant center given his worsening hepatic function and possible impending liver failure. 2. Continue to work with Case Management for emergency funding. 3. Continue with lactulose, but would decrease to 15 g b.i.d. given the significant number of bowel movements he has had today. 4. Diuretic management is not indicated at this time for fear of worsening his hyponatremia, but may be considered here in the near future if he stabilizes for treatment of his ascites. 5. May consider repeat paracentesis for therapeutic purposes. 6. Continue high-protein low-sodium diet. Job ID: [id number]
[2019-05-21] MEDS: Nicotine 21 MG PATCH TD SCH (20:37)
[2019-05-22 06:29] LABS: INR-International Normal Ratio 2.1; PTT 48.6 SEC (22.9-36.1); Prothrombin Time 23.5 SEC (12.0-14.7)
[2019-05-22 06:37] LABS: Hemoglobin 9.8 g/dL (14.0-18.0); Mean Corpuscular HGB CONC 33.5 g/dL (32.0-36.0); Mean Corpuscular Hemoglobin 35.1 pg (27.0-31.0); Mean Platelet Volume 7.5 fL (7.4-10.4); Platelet Count 90 thou/uL (130-400); RBC Distribution Width 14.7 % (11.5-14.5); White Blood Cell (WBC) Count 8.4 thou/uL (4.8-10.8)
[2019-05-22 06:38] LABS: Band 2 % (5-11); Eosinophils 2 % (0-10); Lymphocytes 17 % (21-51); MDiff Complete? YES; Macrocytosis SLIGHT = 6-15 cells (100X) (0-5/hpf); Monocytes 8 % (0-10); Neutrophil 70 % (42-75); Platelet Morphology Comment Appears Decreased
[2019-05-22 06:45] LABS: ALT (SGPT) 41 U/L (8-55); AST (SGOT) 73 U/L (5-34); Alkaline Phosphatase 80 U/L (40-110); Anion Gap 9 mmol/L (10-20); BUN (Urea Nitrogen) 9 mg/dL (8.4-25.7); Bilirubin, Total 10.1 mg/dL (0.2-1.2); Calc. Creatinine Clearance 101 mL/min (70-130); Calcium 7.6 mg/dL (7.8-10.44); Carbon Dioxide 26 mmol/L (22-29); Chloride 95 mmol/L (98-107); Estimated GFR-MDRD 87; Globulin 4.3 g/dL (2.4-3.5); Glucose 85 mg/dL (70-105); Protein, Total 6.3 g/dL (6.0-8.3); Sodium 127 mmol/L (136-145)
--- NOTE | 2019-05-22 08:35 | PDOC.FM ---
- Subjective Subjective: Pt's mentation is at baseline this morning. states he seems to be doing much better. Pt requests to return home if he is unable to get transferred for a transplant. Denies any complaints this morning. - Objective Vital Signs & Weight: Vital Signs (12 hours) Temp Pulse Resp BP BP Pulse Ox 05/22/19 07:54 98.5 F 90 18 110/65 93 L 05/22/19 04:00 98.9 F 90 20 109/61 96 05/21/19 23:15 99.8 F H 103 H 20 92 L Weight Admit Weight 80.739 kg Weight 80.739 kg I&O: 05/21/19 05/22/19 05/23/19 06:59 06:59 06:59 Intake Total 620 Balance 620 Result Diagrams: 05/22/19 05:57 05/22/19 05:57 Phys Exam - Physical Examination Constitutional: NAD HEENT: moist MMs Scleral icterus Neck: full ROM Respiratory: no wheezing, no rales, no rhonchi Cardiovascular: RRR, no significant murmur Distended, resonant to percussion, non tender Musculoskeletal: no edema, pulses present Neurological: non-focal, moves all 4 limbs Psychiatric: normal affect Skin: no rash Deviation from normal: Jaundice Dx/Plan (1) Acute liver failure Status: Acute (2) Transaminitis Code(s): R74.0 - NONSPEC ELEV OF LEVELS OF TRANSAMNS & LACTIC ACID DEHYDRGNSE Status: Acute (3) Ascites Code(s): R18.8 - OTHER ASCITES Status: Acute (4) Hematemesis of unknown cause Code(s): K92.0 - HEMATEMESIS Status: Acute (5) Coagulation defect Status: Acute (6) Hyponatremia Code(s): E87.1 - HYPO-OSMOLALITY AND HYPONATREMIA Status: Acute (7) Thrombocytopenia Code(s): D69.6 - THROMBOCYTOPENIA, UNSPECIFIED Status: Acute (8) Macrocytic anemia Code(s): D53.9 - NUTRITIONAL ANEMIA, UNSPECIFIED Status: Acute (9) Cirrhosis of liver Code(s): K74.60 - UNSPECIFIED CIRRHOSIS OF LIVER Status: Suspected Qualifiers: Hepatic cirrhosis type: alcoholic cirrhosis - Plan Plan: 1. Acute liver failure in the setting of likely cirrhosis * Worsening LFT and bilirubin, elevated INR/PT/PTT * MRI abdomen could not be completed d/t pt unable to hold breath with his hiccups * Radiologist recommended CT abdomen w/ and w/o contrast with liver mass protocol * Abd/Pelvis CT: Cirrhotic changes of the liver with regenerative nodules. proctocolitis infectious vs inflammatory * GI Recs: Paracentesis - current ascitic fluid results suggest portal hypertension * Ammonia decreased after lactulose administration * Will reduce to BID * Adding thiamine and folate supplement * Denied for transfer by transplant centers due to lack of insurance * Seeking emergency health insurance - pt family working with CM today * Consult palliative care for discussions of goals of care and possibility of home hospice going forward 2. Macrocytic anemia in setting of alcohol abuse hx & recent hematemesis Hgb: 10.7 upon presentation * Distal esophageal mural thickening - erosive esophagitis seen on EGD * Colonoscopy showing 2 polyps, one removed w/ subsequent bleeding requiring clip for hemostasis, remaining polyp left in situ 2/2 bleeding risk * Will Monitor H&H, goal above 03/16 - currently stable @ 10.3/30.6 * Holding Anticoagulants * Peripheral Smear pending * RBC Folate, pending * B12 twice upper limits of normal * Iron studies: iron normal, remaining panel all elevated suggesting iron overload 3. Iron overload * Serum iron: 97 * TIBC: 18 * % Sat: 118 * Ferritin: 3088 * DDx: w/ normal iron and remaining iron studies elevated: Liver disease ( alcoholic hepatitis, chronic hepatitis, NAFLD), hereditary hemochromatosis, ineffective erythropoesis (porphyrias, B12/folate deficiency, thalassemias, sideroblastic anemias) * In this pt most likely cause at this point is liver disease increasing iron studies vs less likely hereditary hemochromatosis w/ secondary liver disease * Will consider MRI abdomen to assess total liver iron as well as genetic testing for hemochromatosis 4. Hyperbilirubinemia w/ jaundice * Continually rising bilirubin * Fractionated bilirubin - showed elevation of both direct and indirect w/ greater proportional elevation in direct 5. Thrombocytopenia in setting of acute vs chronic liver disease * Cont to monitor * Avoid anticoagulants 6. Hyponatremia Na: 125 * LR @ 100 * Likely 2/2 to combination of worsening liver disease and decreased PO intake Condition: Stable Diet: Cardiac DVT PPX: Holding for now GI PPX: Protonix Activity: Ambulate with Assist Precautions: Fall PCP: CC Code Status: DNR-DNI Dispo: Inpt, pt with acutely worsening liver failure. Dr. Orona and I discussed last night that pt requires higher level of care and assessment for liver transplantation. Transfer center has been contacted and is reaching out currently. Addendum - Attending - Attending Attestation Date/Time: 05/22/19 1112 I personally evaluated the patient and discussed the management with Dr. Moe. I agree with the History, Examination, Assessment and Plan documented above with any addition or exceptions noted below. Patient overall improved from a mentation standpoint today. Continues to be in decompensated liver failure but labs are stable today. Awaiting funding options before trying to transplant center again. Patient requests to go home if not candidate for transplant though he is aware this will be a likely terminal event.
[2019-05-22] MEDS: Pantoprazole 40 MG VIAL IVP SCH ×2 (08:51→20:01)
[2019-05-22] MEDS: Thiamine 100 MG TAB PO SCH (08:51)
[2019-05-22] MEDS: Folic Acid/Vit B Comp W-C PO SCH (08:51)
[2019-05-22] MEDS: Potassium Chloride 20 MEQ TAB PO SCH (16:52)
--- NOTE | 2019-05-22 19:58 | PRG ---
DATE OF SERVICE: 05/22/2019 REASON FOR CONSULTATION: Jaundice, abnormal GI imaging, hematemesis, and cirrhosis. SUBJECTIVE: During the course of the day today, he did exhibit some possible visual hallucinations per the patient's family at bedside, but otherwise had fairly clear sensorium/mentation. In talking with the patient, he states that he has had approximately 3 bowel movements today that were semi-solid in consistency, but no difficulty with defecation. He currently denies any nausea, vomiting, fevers, chills, hematemesis, melena, hematochezia, or abdominal pain. OBJECTIVE: VITAL SIGNS: Temperature 98.3, pulse 92, blood pressure 123/72, respiratory rate 14, saturating 96% on room air. GENERAL: The patient is lying in bed, in no acute distress. Alert and oriented x3. CARDIOVASCULAR: Regular rate and rhythm. RESPIRATORY: Diminished breath sounds auscultated in the bilateral lower lung gibson. ABDOMEN: Normoactive bowel sounds. Soft. Moderate abdominal distention. No tenderness to palpation. Positive shifting dullness. EXTREMITIES: No cyanosis, clubbing, or edema. LABORATORY DATA: CBC with white blood cell count of 8.4, hemoglobin 9.8, hematocrit 29.4, platelets 90. INR 2.1. Chemistry with a sodium of 127, potassium 3, chloride 95, CO2 of 26, BUN 9, creatinine 0.89, glucose 85, AST 73, ALT 41, alkaline phosphatase 80, total bilirubin 10.1. MELD score calculation 29. Child-Thompson classification calculation C. IMAGING DATA: No current GI imaging is available for review. ASSESSMENT AND PLAN: 1. The patient is a 58-year-old gentleman with a past medical history of tobacco abuse, acid reflux, alcohol abuse, and family history of colon cancer, presenting with decompensated cirrhosis complicated by abdominal ascites and lower extremity edema as well as LA grade D reflux esophagitis. 2. Hematemesis. 3. The patient presented with a history of increased hematemesis, characterized as blood tinged clear vomitus that was small in volume. He underwent EGD on May 17, 2019, which showed severe LA grade D reflux esophagitis that has been responding to PPI therapy ever since. While on PPI 40 mg b.i.d., he has not had any further episodes of hematemesis. There was no evidence of esophageal varices or gastric varices on the upper endoscopy indicative of possible bleeding. RECOMMENDATIONS: 1. Continue pantoprazole 40 mg b.i.d. and continue on this regimen at least for the next 8 weeks, then consider decreasing to 40 mg daily. 2. Continue to monitor clinically for signs of active hematemesis. 3. Continue to trend his H and H. 4. Decompensated cirrhosis. 5. The patient is presenting with cirrhotic morphology on CT scan with what appears to be regenerative nodules, hyperbilirubinemia, thrombocytopenia, elevated INR, and hyponatremia, all consistent with a diagnosis of decompensated cirrhosis. Currently with a MELD score of 29, which is currently downtrending as well as a Child-Thompson classification C. Paracentesis was performed during this admission, was most consistent with portal hypertension rather than malignant type process. AFP also obtained during this admission was normal. Over the last 48 to 72 hours, the patient had been exhibiting a slowly rising INR, decreasing hyponatremia, and a slowly rising hyperbilirubinemia as well as the appearance of hepatic encephalopathy strongly concerning for imminent hepatic failure. However, over the last 12 to for 24 hours, his INR has decreased. His total bilirubin is also discussed decreased, and his mental status has improved with lactulose administration with stabilization of his hepatic function at this time. Attempts to transfer the patient to a tertiary care center for evaluation prior to liver transplant have been unsuccessful thus far secondary to insurance reason. Given the poor prognosis of this patient and approximately 30% 90-day mortality, releasing the patient to home hospice is not an unreasonable request. 6. Would continue to work on finding status for possible transferring the patient to a tertiary care center with liver transplant; however, if all options have been exhausted, then discharging the patient to home hospice is not unreasonable. 7. Would continue lactulose administration, but continue 15 g b.i.d. with the target being 3 to 4 bowel movements a day. 8. Would hold on diuretic management at this time given severe hyponatremia, but could consider a repeat paracentesis prior to discharge for comfort measures only. I would also keep the patient on a low-sodium diet to prevent formation of further ascites. We will continue to follow the patient is still inpatient. Please call with any questions. Job ID: [id number]
[2019-05-22] MEDS: Nicotine 21 MG PATCH TD SCH (20:04)
--- NOTE | 2019-05-23 06:17 | PDOC.FM ---
- Subjective Subjective: Pt is resting this morning. stated that he did have some disorientation last night but it was better than other nights had been. She continues to work with case management and finance staff - attempting to get pt on disability. - Objective Vital Signs & Weight: Vital Signs (12 hours) Temp Pulse Resp BP BP Pulse Ox 05/23/19 05:34 98.6 F 99 18 131/73 96 05/23/19 04:15 94 L 05/23/19 00:22 99 F 101 H 18 125/75 94 L 05/22/19 20:15 92 L 05/22/19 20:10 99.1 F 95 18 130/70 92 L Weight Admit Weight 80.739 kg Weight 80.739 kg I&O: 05/21/19 05/22/19 05/23/19 06:59 06:59 06:59 Intake Total 620 300 Output Total 210 Balance 620 90 Result Diagrams: 05/23/19 06:26 05/23/19 06:26 Phys Exam - Physical Examination Resting but arousable Scleral icterus Neck: no JVD, supple Respiratory: clear to auscultation bilateral No resp distress Cardiovascular: RRR Short systolic murmur 2/6 Distended, tympanic, no peritoneal signs Musculoskeletal: no edema, pulses present Disoriented Deviation from normal: Jaundice Dx/Plan (1) Acute liver failure Status: Acute (2) Transaminitis Code(s): R74.0 - NONSPEC ELEV OF LEVELS OF TRANSAMNS & LACTIC ACID DEHYDRGNSE Status: Acute (3) Ascites Code(s): R18.8 - OTHER ASCITES Status: Acute (4) Hematemesis of unknown cause Code(s): K92.0 - HEMATEMESIS Status: Acute (5) Coagulation defect Status: Acute (6) Hyponatremia Code(s): E87.1 - HYPO-OSMOLALITY AND HYPONATREMIA Status: Acute (7) Thrombocytopenia Code(s): D69.6 - THROMBOCYTOPENIA, UNSPECIFIED Status: Acute (8) Macrocytic anemia Code(s): D53.9 - NUTRITIONAL ANEMIA, UNSPECIFIED Status: Acute (9) Cirrhosis of liver Code(s): K74.60 - UNSPECIFIED CIRRHOSIS OF LIVER Status: Suspected Qualifiers: Hepatic cirrhosis type: alcoholic cirrhosis - Plan Plan: 1. Acute liver failure in the setting of likely cirrhosis * LFT and bilirubin, elevated INR/PT/PTT - overall worsening but w/ stabilizing and slightly improving levels over last 24 hr * Imaging suggestive of cirrhosis * GI Recs: Paracentesis - current ascitic fluid results suggest portal hypertension * Rec transfer for transplant * MELD 29, Child-Thompson C * If pt to DC home will consider therapeutic paracentesis * Ammonia decreased after lactulose administration * Will reduce to BID w/ goal of 3-4 BM per day * Adding thiamine and folate supplement * Denied for transfer by transplant centers due to lack of insurance * Seeking emergency health insurance - pt family working with CM today * Consult palliative care for discussions of goals of care and possibility of home hospice going forward if transplant is not an option 2. Macrocytic anemia in setting of alcohol abuse hx & recent hematemesis Hgb: 10.7 upon presentation * Distal esophageal mural thickening - erosive esophagitis seen on EGD * Path: Erosive esophagitis, no higuera's * Colonoscopy showing 2 polyps, one removed w/ subsequent bleeding requiring clip for hemostasis, remaining polyp left in situ 2/2 bleeding risk * Path: Tubular adenoma * Will Monitor H&H, goal above 03/16 - currently stable @ 10.3/30.6 * Holding Anticoagulants * Peripheral Smear - macrocytic anemia and thrombocytopenia * RBC Folate, pending * B12 twice upper limits of normal * Iron studies: iron normal, remaining panel all elevated suggesting iron overload 3. Iron overload * Serum iron: 97 * TIBC: 18 * % Sat: 118 * Ferritin: 3088 * DDx: w/ normal iron and remaining iron studies elevated: Liver disease ( alcoholic hepatitis, chronic hepatitis, NAFLD), hereditary hemochromatosis, ineffective erythropoesis (porphyrias, B12/folate deficiency, thalassemias, sideroblastic anemias) * In this pt most likely cause at this point is liver disease increasing iron studies vs less likely hereditary hemochromatosis w/ secondary liver disease 4. Hyperbilirubinemia w/ jaundice * Continually rising bilirubin * Fractionated bilirubin - showed elevation of both direct and indirect w/ greater proportional elevation in direct 5. Thrombocytopenia in setting of acute vs chronic liver disease * Cont to monitor * Avoid anticoagulants 6. Hyponatremia * LR @ 100 * Likely 2/2 to combination of worsening liver disease and decreased PO intake * Avoid diuretics if possible Condition: Stable Diet: Cardiac DVT PPX: Holding for now GI PPX: Protonix Activity: Ambulate with Assist Precautions: Fall PCP: CC Code Status: DNR-DNI Dispo: Inpt, pt with acutely worsening liver failure. Dr. Orona and I discussed that pt requires higher level of care and assessment for liver transplantation. With pt being uninsured no transplant center will accept him for transfer - currently working with CM to acquire emergency Medicaid. If unsuccessful home hospice would likely be pt and families preferred choice. Palliative consulted, appreciate recs. Addendum - Attending - Attending Attestation Date/Time: 05/23/19 4403 I personally evaluated the patient and discussed the management with Dr. Moe. I agree with the History, Examination, Assessment and Plan documented above with any addition or exceptions noted below. Patient here with acute decompensated cirrhosis. Labs overall stable for the last day or so which is an improvement, but he is now verging on hypoglycemia which would portend a poor short term prognosis. Goal at this time is still transfer to liver transplant center, but awaiting updates regarding funding ability. Backup plan is hospice care and palliative care is currently on board. Encephalolpathy overall stable and patient is conversant with me this morning. PT/OT on board to get patient out of bed.
[2019-05-23 07:00] LABS: INR-International Normal Ratio 2.1; Prothrombin Time 23.4 SEC (12.0-14.7)
[2019-05-23 07:01] LABS: PTT 46.3 SEC (22.9-36.1)
[2019-05-23 07:17] LABS: ALT (SGPT) 45 U/L (8-55); AST (SGOT) 80 U/L (5-34); Alkaline Phosphatase 85 U/L (40-110); Anion Gap 12 mmol/L (10-20); BUN (Urea Nitrogen) 8 mg/dL (8.4-25.7); Bilirubin, Total 10.8 mg/dL (0.2-1.2); Calc. Creatinine Clearance 98 mL/min (70-130); Calcium 7.7 mg/dL (7.8-10.44); Carbon Dioxide 25 mmol/L (22-29); Chloride 94 mmol/L (98-107); Estimated GFR-MDRD 84; Globulin 4.9 g/dL (2.4-3.5); Glucose 68 mg/dL (70-105); Potassium 3.9 mmol/L (3.5-5.1); Protein, Total 6.9 g/dL (6.0-8.3); Sodium 127 mmol/L (136-145)
[2019-05-23] MEDS: Potassium Chloride 20 MEQ TAB PO SCH ×2 (08:35→18:08)
[2019-05-23] MEDS: Folic Acid/Vit B Comp W-C PO SCH (08:35)
[2019-05-23] MEDS: Thiamine 100 MG TAB PO SCH (08:36)
[2019-05-23] MEDS: Pantoprazole 40 MG VIAL IVP SCH ×2 (08:36→20:21)
[2019-05-23 08:50] LABS: Band 6 % (5-11); Hemoglobin 10.5 g/dL (14.0-18.0); Lymphocytes 26 % (21-51); MDiff Complete? YES; Macrocytosis MODERATE=16-30 cells (100X) (0-5/hpf); Mean Corpuscular HGB CONC 32.7 g/dL (32.0-36.0); Mean Corpuscular Hemoglobin 34.1 pg (27.0-31.0); Monocytes 6 % (0-10); Neutrophil 62 % (42-75); Platelet Count 99 thou/uL (130-400); Platelet Morphology Comment Appears Decreased; Polychromasia MODERATE = 3-4 cells (100X) (0-2/hpf); Red Blood Cell (RBC) Count 3.09 mill/uL (4.70-6.10); Rouleaux Formation SLIGHT = 1-5 cells (100X) (None Seen); Target Cells MODERATE= 6-15 cells (100X) (0-1/hpf); White Blood Cell (WBC) Count 7.6 thou/uL (4.8-10.8)
--- NOTE | 2019-05-23 15:55 | PRG ---
DATE OF SERVICE: 05/23/2019 REASON FOR CONSULTATION: Cirrhosis, hematemesis. SUBJECTIVE: Today, the patient states that he is doing okay with minimal disorientation last night per the patient's . At the time of the interview, the patient was about to engage in physical therapy. He has also had approximately two semi-solid bowel movements today with no difficulty with defecation. Denies any further episodes of hematemesis. Otherwise, he also denies any nausea, vomiting, fevers, chills, melena, hematochezia, or abdominal pain. OBJECTIVE: VITAL SIGNS: Temperature 97.9, pulse 102, blood pressure 114/71, respiratory rate 18, and saturating 95% on room air. GENERAL: The patient is sitting at bedside, in no acute distress. Alert and oriented x3. CARDIOVASCULAR: Regular rate and rhythm. RESPIRATORY: Clear to auscultation bilaterally. ABDOMEN: Normoactive bowel sounds. Soft. Moderate abdominal distention. No tenderness to palpation. Positive shifting dullness. EXTREMITIES: No cyanosis, clubbing, or edema. LABORATORY DATA: CBC with a white blood cell count of 7.6, hemoglobin 10.5, hematocrit 32.2, platelets 99. INR 2.1. Chemistry with a sodium of 127, potassium 3.9, chloride 94, CO2 of 25, BUN 8, creatinine 0.92, glucose 68. AST 80, ALT 45, alkaline phosphatase 85, total bilirubin 10.8. IMAGING DATA: No current GI imaging is available for review. ASSESSMENT AND PLAN: The patient is a 58-year-old male with past medical history of tobacco abuse, acid reflux, alcohol abuse, and family history of colon cancer, presenting with decompensated cirrhosis as well as severe reflux esophagitis. Hematemesis; the patient initially presented with hematemesis with an EGD on May 17, 2019, showing severe LA grade D reflux esophagitis. He has not had any further episodes of hematemesis since the procedure and institution of PPI therapy. Recommendations, 1. Continue pantoprazole 40 mg b.i.d. and continue on this regimen for at least the next eight weeks, then decrease to 40 mg daily. 2. Continue to monitor clinically for signs of active hematemesis. Decompensated cirrhosis; the patient is presenting with decompensated cirrhosis as seen by hyperbilirubinemia, thrombocytopenia, elevated INR, hyponatremia, and cirrhotic morphology on CT with regenerative nodules. Currently with a MELD score of 29 and stable when compared to yesterday with Child-Thompson classification C. Paracentesis performed during this admission was consistent with portal hypertension along with an AFP that was obtained during this admission that was normal. Given his elevated INR, hyponatremia and hyperbilirubinemia, it is concerning for imminent hepatic failure. However, the patient has been stable over the last 24 to 48 hours, which may portend some improvement. However, given that his MELD score is 29, the likelihood of a full recovery is low with an approximate 30% to 35% 90-day mortality. Attempts to transfer the patient to a tertiary care center for evaluation for liver transplant have been unsuccessful thus far secondary to insurance reasons/funding. At this time, releasing the patient to home hospice is not an unreasonable request. Recommendations, 1. We will continue to work on funding status to possibly transfer the patient for evaluation secondary to liver transplant. However, if all options have been exhausted and discharging the patient to home hospice is recommended. 2. Would continue lactulose 15 g b.i.d. with the target being 3 to 4 bowel movements per day. 3. We would continue to hold diuretic management, but instead keep the patient on a high-protein low-sodium diet. We will continue to follow peripherally for now given no additional recommendations at this time. Dr. Hinkle will be on-call this weekend, please call him with any questions. Job ID: [id number]
[2019-05-23] MEDS: Nicotine 21 MG PATCH TD SCH (20:21)
[2019-05-24 05:57] LABS: INR-International Normal Ratio 2.3; PTT 48.3 SEC (22.9-36.1)
[2019-05-24 06:01] LABS: Hemoglobin 9.9 g/dL (14.0-18.0); Mean Corpuscular HGB CONC 33.4 g/dL (32.0-36.0); Mean Corpuscular Hemoglobin 35.6 pg (27.0-31.0); Mean Platelet Volume 7.2 fL (7.4-10.4); Platelet Count 100 thou/uL (130-400); Red Blood Cell (RBC) Count 2.76 mill/uL (4.70-6.10); White Blood Cell (WBC) Count 8.9 thou/uL (4.8-10.8)
[2019-05-24 06:19] LABS: ALT (SGPT) 42 U/L (8-55); AST (SGOT) 58 U/L (5-34); Albumin 1.9 g/dL (3.5-5.0); Alkaline Phosphatase 77 U/L (40-110); Anion Gap 9 mmol/L (10-20); BUN (Urea Nitrogen) 9 mg/dL (8.4-25.7); Bilirubin, Total 10.5 mg/dL (0.2-1.2); Calc. Creatinine Clearance 102 mL/min (70-130); Calcium 7.5 mg/dL (7.8-10.44); Carbon Dioxide 24 mmol/L (22-29); Chloride 95 mmol/L (98-107); Estimated GFR-MDRD 88; Globulin 4.4 g/dL (2.4-3.5); Glucose 83 mg/dL (70-105); Potassium 3.4 mmol/L (3.5-5.1); Protein, Total 6.3 g/dL (6.0-8.3); Sodium 125 mmol/L (136-145)
[2019-05-24 06:31] LABS: Band 6 % (5-11); Eosinophils 1 % (0-10); Lymphocytes 23 % (21-51); MDiff Complete? YES; Macrocytosis SLIGHT = 6-15 cells (100X) (0-5/hpf); Metamyelocyte 1 % (0-0); Monocytes 10 % (0-10); Neutrophil 58 % (42-75); Platelet Morphology Comment Appears Decreased; Target Cells SLIGHT = 2-5 cells (100X) (0-1/hpf)
--- NOTE | 2019-05-24 06:39 | PDOC.FM ---
- Subjective Subjective: reports pt was restless overnight and set off bed alarm at times. Tmax 99.4 overnight, HR max 107. Pt tells me his name, location, and the year is 2011. reports 4 BM yesterday. Has questions about what medicaid will cover. No symptoms or concerns otherwise. - Objective MAR Reviewed: Yes Vital Signs & Weight: Vital Signs (12 hours) Temp Pulse Resp BP Pulse Ox 05/23/19 20:00 99.0 F 98 18 124/59 L 98 Weight Admit Weight 80.739 kg Weight 80.739 kg I&O: 05/22/19 05/23/19 05/24/19 06:59 06:59 06:59 Intake Total 620 300 900 Output Total 210 Balance 620 90 900 Result Diagrams: 05/24/19 05:32 05/24/19 05:32 Phys Exam - Physical Examination Constitutional: NAD (sleepy) Respiratory: no wheezing, clear to auscultation bilateral pansystolic murmur grade 3/6, best heard over R & LUSB, regular rhythm Distended, dull to percussion, nontender to palpation, +BS Musculoskeletal: pulses present (DP 2+, pitting edema in lower extremities 1+) no asterixis, follows commands Deviation from normal: AxO x2,to self and place. Dx/Plan (1) Acute liver failure Status: Acute (2) Anemia Code(s): D64.9 - ANEMIA, UNSPECIFIED Status: Acute (3) Ascites Code(s): R18.8 - OTHER ASCITES Status: Acute (4) Coagulation defect Status: Acute (5) Hematemesis of unknown cause Code(s): K92.0 - HEMATEMESIS Status: Acute (6) Hyponatremia Code(s): E87.1 - HYPO-OSMOLALITY AND HYPONATREMIA Status: Acute (7) Jaundice Code(s): R17 - UNSPECIFIED JAUNDICE Status: Acute (8) Liver mass Code(s): R16.0 - HEPATOMEGALY, NOT ELSEWHERE CLASSIFIED Status: Acute (9) Macrocytic anemia Code(s): D53.9 - NUTRITIONAL ANEMIA, UNSPECIFIED Status: Acute (10) Thrombocytopenia Code(s): D69.6 - THROMBOCYTOPENIA, UNSPECIFIED Status: Acute (11) Transaminitis Code(s): R74.0 - NONSPEC ELEV OF LEVELS OF TRANSAMNS & LACTIC ACID DEHYDRGNSE Status: Acute (12) Cirrhosis of liver Code(s): K74.60 - UNSPECIFIED CIRRHOSIS OF LIVER Status: Suspected Qualifiers: Hepatic cirrhosis type: alcoholic cirrhosis - Plan Plan: 58-year old male w/ no previous medical care admitted for: Acute liver failure likely 2/2 cirrhosis - LFT, bilirubin, elevated INR/PT/PTT - Stable, slightly improved AST - Imaging suggestive of cirrhosis - GI consulted, appreciate Recs: * Paracentesis - current ascitic fluid results suggest portal hypertension, consider therapeutic paracentesis * Rec transfer for transplant, however pt uninsured * MELD 29, Child-Thompson C - Ammonia decreased after lactulose administration * goal of 3-4 BM per day - Thiamine and folate supplement - Seeking emergency health insurance - pt family working with CM today - Palliative care consult, appreciate recs. Hospice if no medicaid approval. Macrocytic anemia likely 2/2 alcohol abuse hx & hematemesis - Hgb: 10.7 on admission, fluctuating between 9 & 10 - Erosive esophagitis seen on EGD and Path - Tubular adenoma on colonoscopy - Hold Anticoagulants - RBC Folate, pending - B12 twice ULN Iron overload likely 2/2 liver disease - Etiology DDx: (normal iron and remaining iron studies elevated) Liver disease 2/2 alcoholic hepatitis, chronic hepatitis, or NAFLD,; hereditary hemochromatosis; ineffective erythropoesis 2/2 porphyrias, folate deficiency, thalassemias, or sideroblastic anemias Hyperbilirubinemia w/ jaundice - Stable TBili - Fractionated bilirubin - elevated direct and indirect w/ greater proportional elevation in direct Thrombocytopenia in setting of acute vs chronic liver disease - improving, Cont to monitor - Avoid anticoagulants Hyponatremia - Pt on low salt diet and will balance benefit/risk of replacing sodium - Likely 2/2 to combination of worsening liver disease and decreased PO intake - Avoid diuretics if possible Diet: Cardiac DVT PPX: Held, contraindicated 2/2 thrombocytopenia GI PPX: Protonix Activity: Ambulate with Assist Precautions: Fall Code Status: DNR-DNI Dispo: Inpt, pt with liver failure requiring transplant. Pending emergency medicaid. If unsuccessful, pt and family request home hospice. Addendum - Attending - Attending Attestation Date/Time: 05/24/19 0112 I personally evaluated the patient and discussed the management with Dr. Pascual. I agree with the History, Examination, Assessment and Plan documented above with any addition or exceptions noted below. Patient resting comfortably. He apparently had some agitation overnight but is calm currently. Continue lactulose for mild encephalopathy due to cirrhosis and decompensated disease. His labs continue to be overall stable. Working to exhaust all avenues relating to financial funding so that patient can get transfer to liver transplant center, but those are not currently promising. Suspect patient will end up on hospice care in the coming days.
[2019-05-24] MEDS: Folic Acid/Vit B Comp W-C PO SCH (08:36)
[2019-05-24] MEDS: Pantoprazole 40 MG VIAL IVP SCH ×2 (08:37→20:32)
[2019-05-24] MEDS: Thiamine 100 MG TAB PO SCH (08:37)
[2019-05-24] MEDS: Nicotine 21 MG PATCH TD SCH (20:32)
[2019-05-25 05:20] LABS: INR-International Normal Ratio 2.2; PTT 46.4 SEC (22.9-36.1)
[2019-05-25 05:39] LABS: ALT (SGPT) 40 U/L (8-55); AST (SGOT) 56 U/L (5-34); Albumin 1.8 g/dL (3.5-5.0); Alkaline Phosphatase 78 U/L (40-110); Anion Gap 11 mmol/L (10-20); BUN (Urea Nitrogen) 9 mg/dL (8.4-25.7); Bilirubin, Total 10.9 mg/dL (0.2-1.2); Calc. Creatinine Clearance 106 mL/min (70-130); Calcium 7.4 mg/dL (7.8-10.44); Carbon Dioxide 23 mmol/L (22-29); Chloride 92 mmol/L (98-107); Estimated GFR-MDRD Greater than 90; Globulin 4.5 g/dL (2.4-3.5); Glucose 75 mg/dL (70-105); Potassium 3.2 mmol/L (3.5-5.1); Protein, Total 6.3 g/dL (6.0-8.3); Sodium 123 mmol/L (136-145)
--- NOTE | 2019-05-25 06:15 | PDOC.FM ---
- Subjective Subjective: NAEON. VSS. Pt reports doing well this AM. Walked yesterday down the [place]ill. BM x3. AxO x4. + orthopnea. has question about when to be discharged if pt is feeling better. - Objective MAR Reviewed: Yes Vital Signs & Weight: Vital Signs (12 hours) Temp Pulse Resp BP Pulse Ox 05/25/19 04:51 98.5 F 88 18 115/71 97 05/24/19 20:10 96 05/24/19 20:09 97.8 F 95 18 133/84 96 Weight Admit Weight 80.739 kg Weight 80.739 kg I&O: 05/23/19 05/24/19 05/25/19 06:59 06:59 06:59 Intake Total 300 900 800 Output Total 210 325 Balance 90 900 475 Result Diagrams: 05/25/19 04:45 05/25/19 04:45 Phys Exam - Physical Examination Constitutional: NAD scleral icterus, jaundiced mucous membranes Respiratory: no wheezing, clear to auscultation bilateral regular rate, 3/6 systolic murmur +BS, moderately distended & tight, dullness to percussion Musculoskeletal: pulses present (2+) 2+ pitting edema Psychiatric: normal affect, A&O x 3 Deviation from normal: jaundiced skin Dx/Plan (1) Acute liver failure Status: Acute (2) Anemia Code(s): D64.9 - ANEMIA, UNSPECIFIED Status: Acute (3) Ascites Code(s): R18.8 - OTHER ASCITES Status: Acute (4) Coagulation defect Status: Acute (5) Hematemesis of unknown cause Code(s): K92.0 - HEMATEMESIS Status: Acute (6) Hyponatremia Code(s): E87.1 - HYPO-OSMOLALITY AND HYPONATREMIA Status: Acute (7) Jaundice Code(s): R17 - UNSPECIFIED JAUNDICE Status: Acute (8) Liver mass Code(s): R16.0 - HEPATOMEGALY, NOT ELSEWHERE CLASSIFIED Status: Acute (9) Macrocytic anemia Code(s): D53.9 - NUTRITIONAL ANEMIA, UNSPECIFIED Status: Acute (10) Thrombocytopenia Code(s): D69.6 - THROMBOCYTOPENIA, UNSPECIFIED Status: Acute (11) Transaminitis Code(s): R74.0 - NONSPEC ELEV OF LEVELS OF TRANSAMNS & LACTIC ACID DEHYDRGNSE Status: Acute (12) Cirrhosis of liver Code(s): K74.60 - UNSPECIFIED CIRRHOSIS OF LIVER Status: Suspected Qualifiers: Hepatic cirrhosis type: alcoholic cirrhosis - Plan Plan: 58-year old male w/ no previous medical care admitted for: Acute liver failure likely 2/2 cirrhosis - LFT, bilirubin, elevated INR/PT/PTT - Stable, slightly improved AST. Stop labs. - Imaging suggestive of cirrhosis - GI consulted, appreciate Recs: * Paracentesis - current ascitic fluid results suggest portal hypertension, consider therapeutic paracentesis * Rec transfer for transplant, however pt uninsured * MELD 29, Child-Thompson C * Consider therapeutic paracentesis prn - Ammonia decreased after lactulose administration: goal of 3-4 BM per day - Thiamine and folate supplement - Seeking emergency health insurance - pt family working with CM today - Palliative care consult, appreciate recs. Hospice if no medicaid approval. Palliative nurse to see today to discuss goals of care. Macrocytic anemia likely 2/2 alcohol abuse hx & hematemesis - Hgb: 10.7 on admission, fluctuating between 9 & 10 - Erosive esophagitis seen on EGD and Path - Tubular adenoma on colonoscopy - Hold Anticoagulants - RBC Folate, pending Iron overload likely 2/2 liver disease - Etiology DDx: (normal iron and remaining iron studies elevated) Liver disease 2/2 alcoholic hepatitis, chronic hepatitis, or NAFLD,; hereditary hemochromatosis; ineffective erythropoesis 2/2 porphyrias, folate deficiency, thalassemias, or sideroblastic anemias Hyperbilirubinemia w/ jaundice - Stable TBili - Fractionated bilirubin - elevated direct and indirect w/ greater proportional elevation in direct Thrombocytopenia in setting of acute vs chronic liver disease - improving, Cont to monitor - Avoid anticoagulants Hyponatremia - Likely 2/2 to combination of worsening liver disease and decreased PO intake - Avoid diuretics if possible Hypokalemia - 60 mEq this AM with meal Diet: Cardiac DVT PPX: Held, contraindicated 2/2 thrombocytopenia GI PPX: Protonix Activity: Ambulate with Assist Precautions: Fall Code Status: DNR-DNI Dispo: Inpt, pt with liver failure requiring transplant. Pending emergency medicaid. If unsuccessful, pt and family request home hospice. Addendum - Attending - Attending Attestation Date/Time: 05/25/19 2529 I personally evaluated the patient and discussed the management with Dr. Pascual. I agree with the History, Examination, Assessment and Plan documented above with any addition or exceptions noted below. Patient here for acute hepatic failure 2/2 alcoholic cirrhosis. His labs continue to be overall stable. Financial status complicated and CM on board, but I doubt he will receive funding in time for transplant transfer. He is ambulating with PT. Should consider having hospice companies come in to evaluate , await conversation with Palliative care. Nearing discharge ready if funding does not get approved.
[2019-05-25 06:16] LABS: Band 6 % (5-11); Eosinophils 1 % (0-10); Lymphocytes 20 % (21-51); MDiff Complete? YES; Macrocytosis SLIGHT = 6-15 cells (100X) (0-5/hpf); Mean Corpuscular HGB CONC 33.7 g/dL (32.0-36.0); Mean Platelet Volume 7.1 fL (7.4-10.4); Monocytes 13 % (0-10); Neutrophil 60 % (42-75); Platelet Count 107 thou/uL (130-400); Platelet Morphology Comment Appears Decreased; RBC Distribution Width 15.8 % (11.5-14.5); Red Blood Cell (RBC) Count 2.78 mill/uL (4.70-6.10); Target Cells SLIGHT = 2-5 cells (100X) (0-1/hpf); White Blood Cell (WBC) Count 8.9 thou/uL (4.8-10.8)
[2019-05-25] MEDS ORDERED: Potassium Chloride 20 MEQ TAB PO SCH (08:00)
[2019-05-25] MEDS: Folic Acid/Vit B Comp W-C PO SCH (08:16)
[2019-05-25] MEDS: Thiamine 100 MG TAB PO SCH (08:16)
[2019-05-25] MEDS: Pantoprazole 40 MG VIAL IVP SCH ×2 (08:17→21:30)
[2019-05-25] MEDS: Nicotine 21 MG PATCH TD SCH (21:30)
--- NOTE | 2019-05-26 06:02 | PDOC.FM ---
- Subjective Subjective: notes waxing and waning mental status. Pt denies any abdominal pain. 1 bm yesterday. - Objective Vital Signs & Weight: Vital Signs (12 hours) Temp Pulse Resp BP BP Pulse Ox 05/26/19 04:00 98.3 F 85 18 111/71 96 05/26/19 00:00 98.7 F 92 18 109/68 96 05/25/19 20:00 99.0 F 90 18 110/65 96 Weight Admit Weight 80.739 kg Weight 80.739 kg I&O: 05/24/19 05/25/19 05/26/19 06:59 06:59 06:59 Intake Total 900 800 840 Output Total 325 475 Balance 900 475 365 Result Diagrams: 05/26/19 05:53 05/26/19 05:53 Phys Exam - Physical Examination Constitutional: NAD HEENT: moist MMs Scleral icterus Neck: full ROM Respiratory: clear to auscultation bilateral Cardiovascular: RRR, no significant murmur Distended abdomen, tympanic, non-tender Musculoskeletal: no edema, pulses present Neurological: non-focal, moves all 4 limbs Psychiatric: normal affect, A&O x 3 Skin: no rash, cap refill <2 seconds Dx/Plan (1) Acute liver failure Status: Acute (2) Transaminitis Code(s): R74.0 - NONSPEC ELEV OF LEVELS OF TRANSAMNS & LACTIC ACID DEHYDRGNSE Status: Acute (3) Ascites Code(s): R18.8 - OTHER ASCITES Status: Acute (4) Coagulation defect Status: Acute (5) Hyponatremia Code(s): E87.1 - HYPO-OSMOLALITY AND HYPONATREMIA Status: Acute (6) Thrombocytopenia Code(s): D69.6 - THROMBOCYTOPENIA, UNSPECIFIED Status: Acute (7) Macrocytic anemia Code(s): D53.9 - NUTRITIONAL ANEMIA, UNSPECIFIED Status: Acute (8) Cirrhosis of liver Code(s): K74.60 - UNSPECIFIED CIRRHOSIS OF LIVER Status: Suspected Qualifiers: Hepatic cirrhosis type: alcoholic cirrhosis - Plan Plan: Acute liver failure likely 2/2 cirrhosis - Imaging suggestive of cirrhosis - labs suggestive of slowly decompensating liver failure - GI consulted, appreciate Recs: * Paracentesis - current ascitic fluid results suggest portal hypertension, consider therapeutic paracentesis * Rec transfer for transplant, however pt uninsured * MELD 29, Child-Thompson C - Ammonia decreased after lactulose administration: goal of 3-4 BM per day - Will increase lactulose to TID - Thiamine and folate supplement - Seeking emergency health insurance - pt family working with CM today - Palliative care consult, appreciate recs. Hospice if no medicaid approval. Macrocytic anemia likely 2/2 alcohol abuse hx & hematemesis - Hgb: 10.7 on admission, fluctuating between 9 & 10 - Erosive esophagitis seen on EGD and Path - Tubular adenoma on colonoscopy - Hold Anticoagulants Iron overload likely 2/2 liver disease - Etiology DDx: (normal serum iron and elevated ferritin) Liver disease 2/2 alcoholic hepatitis, chronic hepatitis, or NAFLD; hereditary hemochromatosis; ineffective erythropoesis 2/2 porphyrias, folate deficiency, thalassemias, or sideroblastic anemias Hyperbilirubinemia w/ jaundice - Stable TBili ~10 - Fractionated bilirubin - elevated direct and indirect w/ greater proportional elevation in direct Thrombocytopenia in setting of acute vs chronic liver disease - improved since admission - Avoid anticoagulants Hyponatremia - Likely 2/2 to combination of worsening liver disease and decreased PO intake - Avoid diuretics if possible Hypokalemia - 60 mEq this AM with meal Diet: Cardiac DVT PPX: Held, contraindicated 2/2 thrombocytopenia GI PPX: Protonix Activity: Ambulate with Assist Precautions: Fall Code Status: DNR-DNI Dispo: Inpt, pt with liver failure requiring transplant. Pending emergency medicaid. If unsuccessful, pt and family request home hospice. Addendum - Attending - Attending Attestation Date/Time: 05/26/191924 I personally evaluated the patient and discussed the management with Dr. Moe. I agree with the History, Examination, Assessment and Plan documented above with any addition or exceptions noted below. The patient is stable. They are meeting with hospice this afternoon. Will d/c when hospice gets arranged.
[2019-05-26 06:25] LABS: INR-International Normal Ratio 2.1; Prothrombin Time 23.2 SEC (12.0-14.7)
[2019-05-26 06:26] LABS: PTT 45.7 SEC (22.9-36.1)
[2019-05-26 06:27] LABS: Mean Corpuscular HGB CONC 33.4 g/dL (32.0-36.0); Mean Corpuscular Hemoglobin 35.8 pg (27.0-31.0); Mean Platelet Volume 6.9 fL (7.4-10.4); Platelet Count 135 thou/uL (130-400); RBC Distribution Width 15.8 % (11.5-14.5); Red Blood Cell (RBC) Count 2.78 mill/uL (4.70-6.10); White Blood Cell (WBC) Count 8.8 thou/uL (4.8-10.8)
[2019-05-26 06:43] LABS: ALT (SGPT) 41 U/L (8-55); AST (SGOT) 67 U/L (5-34); Albumin 1.9 g/dL (3.5-5.0); Alkaline Phosphatase 83 U/L (40-110); Anion Gap 9 mmol/L (10-20); BUN (Urea Nitrogen) 9 mg/dL (8.4-25.7); Band 3 % (5-11); Bilirubin, Total 10.5 mg/dL (0.2-1.2); Calc. Creatinine Clearance 102 mL/min (70-130); Calcium 7.4 mg/dL (7.8-10.44); Carbon Dioxide 25 mmol/L (22-29); Chloride 93 mmol/L (98-107); Estimated GFR-MDRD 88; Globulin 4.5 g/dL (2.4-3.5); Glucose 85 mg/dL (70-105); Lymphocytes 16 % (21-51); MDiff Complete? YES; Macrocytosis SLIGHT = 6-15 cells (100X) (0-5/hpf); Metamyelocyte 1 % (0-0); Monocytes 14 % (0-10); Neutrophil 65 % (42-75); Potassium 3.9 mmol/L (3.5-5.1); Protein, Total 6.4 g/dL (6.0-8.3); Sodium 123 mmol/L (136-145); Target Cells SLIGHT = 2-5 cells (100X) (0-1/hpf)
[2019-05-26] MEDS: Folic Acid/Vit B Comp W-C PO SCH (08:18)
[2019-05-26] MEDS: Thiamine 100 MG TAB PO SCH (08:19)
[2019-05-26] MEDS: Pantoprazole 40 MG VIAL IVP SCH ×2 (08:19→20:59)
[2019-05-26] MEDS: Nicotine 21 MG PATCH TD SCH (20:12)
[2019-05-27 06:39] LABS: Hemoglobin 10.8 g/dL (14.0-18.0); Mean Corpuscular HGB CONC 33.5 g/dL (32.0-36.0); Mean Corpuscular Hemoglobin 35.3 pg (27.0-31.0); Platelet Count 143 thou/uL (130-400); RBC Distribution Width 15.7 % (11.5-14.5); Red Blood Cell (RBC) Count 3.05 mill/uL (4.70-6.10); White Blood Cell (WBC) Count 10.1 thou/uL (4.8-10.8)
[2019-05-27 06:42] LABS: INR-International Normal Ratio 1.9; PTT 42.8 SEC (22.9-36.1); Prothrombin Time 21.7 SEC (12.0-14.7)
[2019-05-27 07:05] LABS: ALT (SGPT) 46 U/L (8-55); AST (SGOT) 65 U/L (5-34); Albumin 1.9 g/dL (3.5-5.0); Alkaline Phosphatase 86 U/L (40-110); Anion Gap 9 mmol/L (10-20); BUN (Urea Nitrogen) 8 mg/dL (8.4-25.7); Calc. Creatinine Clearance 107 mL/min (70-130); Calcium 7.5 mg/dL (7.8-10.44); Carbon Dioxide 24 mmol/L (22-29); Chloride 93 mmol/L (98-107); Estimated GFR-MDRD Greater than 90; Globulin 4.9 g/dL (2.4-3.5); Glucose 77 mg/dL (70-105); Potassium 3.3 mmol/L (3.5-5.1); Protein, Total 6.8 g/dL (6.0-8.3); Sodium 123 mmol/L (136-145)
[2019-05-27 07:33] LABS: Band 8 % (5-11); Eosinophils 1 % (0-10); Lymphocytes 21 % (21-51); MDiff Complete? YES; Macrocytosis SLIGHT = 6-15 cells (100X) (0-5/hpf); Monocytes 8 % (0-10); Neutrophil 61 % (42-75); Platelet Morphology Comment Appears Adequate; Polychromasia SLIGHT = 2-3 cells (100X) (0-2/hpf); Rouleaux Formation SLIGHT = 1-5 cells (100X) (None Seen); Target Cells SLIGHT = 2-5 cells (100X) (0-1/hpf)
--- NOTE | 2019-05-27 08:40 | PDOC.FM ---
- Subjective Subjective: No events overnight. Pt denies any abdominal pain this morning. Continued intermittent confusion and disorientation. - Objective Vital Signs & Weight: Vital Signs (12 hours) Temp Pulse Resp BP BP Pulse Ox 05/27/19 07:58 98.4 F 93 18 103/63 100 05/27/19 04:00 97.4 F L 81 18 112/69 96 05/27/19 00:00 98.6 F 93 18 100/60 95 Weight Admit Weight 80.739 kg Weight 80.739 kg I&O: 05/26/19 05/27/19 05/28/19 06:59 06:59 06:59 Intake Total 840 Output Total 475 Balance 365 Result Diagrams: 05/27/19 05:56 05/27/19 05:56 Phys Exam - Physical Examination Constitutional: NAD HEENT: moist MMs Scleral icterus Neck: full ROM Respiratory: clear to auscultation bilateral Cardiovascular: RRR Distended, tympanic Musculoskeletal: pulses present 1+ pitting edema to bilateral LE Neurological: moves all 4 limbs Psychiatric: normal affect Skin: cap refill <2 seconds Dx/Plan (1) Acute liver failure Status: Acute (2) Transaminitis Code(s): R74.0 - NONSPEC ELEV OF LEVELS OF TRANSAMNS & LACTIC ACID DEHYDRGNSE Status: Acute (3) Ascites Code(s): R18.8 - OTHER ASCITES Status: Acute (4) Coagulation defect Status: Acute (5) Hyponatremia Code(s): E87.1 - HYPO-OSMOLALITY AND HYPONATREMIA Status: Acute (6) Thrombocytopenia Code(s): D69.6 - THROMBOCYTOPENIA, UNSPECIFIED Status: Acute (7) Macrocytic anemia Code(s): D53.9 - NUTRITIONAL ANEMIA, UNSPECIFIED Status: Acute (8) Cirrhosis of liver Code(s): K74.60 - UNSPECIFIED CIRRHOSIS OF LIVER Status: Suspected Qualifiers: Hepatic cirrhosis type: alcoholic cirrhosis - Plan Plan: Acute liver failure likely 2/2 cirrhosis - Imaging suggestive of cirrhosis - labs suggestive of slowly decompensating liver failure - GI consulted, appreciate Recs: * Paracentesis - current ascitic fluid results suggest portal hypertension, consider therapeutic paracentesis * Rec transfer for transplant, however pt uninsured * MELD 29, Child-Thompson C - Ammonia decreased after lactulose administration: goal of 3-4 BM per day - Thiamine and folate supplement - Therapeutic paracentesis today - Home w/ home hospice today Macrocytic anemia likely 2/2 alcohol abuse hx & hematemesis - Hgb: 10.7 on admission, fluctuating between 9 & 10 - Erosive esophagitis seen on EGD and Path - Tubular adenoma on colonoscopy - Hold Anticoagulants Iron overload likely 2/2 liver disease - Etiology DDx: (normal serum iron and elevated ferritin) Liver disease 2/2 alcoholic hepatitis, chronic hepatitis, or NAFLD; hereditary hemochromatosis; ineffective erythropoesis 2/2 porphyrias, folate deficiency, thalassemias, or sideroblastic anemias Hyperbilirubinemia w/ jaundice - Stable TBili ~10 - Fractionated bilirubin - elevated direct and indirect w/ greater proportional elevation in direct Thrombocytopenia in setting of acute vs chronic liver disease - improved since admission - Avoid anticoagulants Hyponatremia - Likely 2/2 to combination of worsening liver disease and decreased PO intake - Avoid diuretics if possible Hypokalemia - 60 mEq this AM with meal Diet: Cardiac DVT PPX: Held, contraindicated 2/2 thrombocytopenia GI PPX: Protonix Activity: Ambulate with Assist Precautions: Fall Code Status: DNR-DNI Dispo: Inpt, pt with liver failure requiring transplant. Home w/ home hospice today following paracentesis while awaiting approval for disability funding. Addendum - Attending - Attending Attestation Date/Time: 05/27/19 3879 I personally evaluated the patient and discussed the management with Dr. Moe. I agree with the History, Examination, Assessment and Plan documented above with any addition or exceptions noted below. Hospice has been arranged for the patient. He had a paracentesis this morning and abdominal distention is improved. Will d/c home.
[2019-05-27] MEDS ORDERED: Sodium Bicarbonate 2.5 MEQ/5 ML VIAL ONE (08:58)
[2019-05-27] MEDS: Folic Acid/Vit B Comp W-C PO SCH (10:25)
[2019-05-27] MEDS: Thiamine 100 MG TAB PO SCH (10:26)
[2019-05-27] MEDS: Pantoprazole 40 MG VIAL IVP SCH (10:27)
[2019-05-27 10:53] VITALS: BP 124/71; TEMP 98.1
--- NOTE | 2019-05-27 11:27 | ULT ---
Ultrasound-guided paracentesis: HISTORY: Symptomatic ascites FINDINGS: Informed consent obtained prior to the procedure. Preprocedural imaging demonstrated signif icant ascites throughout the abdomen and pelvis. Right lower quadrant prepped and draped in normal sterile fashion and anesthetized with 1% buffered l idocaine. With direct sonographic guidance, 5 Pashto Yueh catheter is advanced into the ascites and removal of the stylet yielded yellow fluid. 3.5 L were removed. The patient tolerated the procedure well. No postprocedural complications. IMPRESSION: Successful ultrasound-guided paracentesis yielding 3.5 L of yellow ascites.
--- NOTE | 2019-05-27 13:01 | PDOC.PALCO ---
Palliative Care Consult - Consult Details Requesting Physician: Dr Zavala Reason for Consult: goals of care, family support Family Members Present: , Son, and daughter in law - Pertinent HPI 58 year old male who can to the emergency room for increase in fatigue and abdominal pain. No alleviating factors for abdominal pain. Onset of red urine 24 -48 hours prior to presentation to emergency room as well as increase in lower extremity edema over 4-5 days. Patient was admitted, and found to have cirrhosis of the liver, macrocytic anemia, ascites, liver failure. Patient is not a candidate for liver transplant and he and family have opted to go home with hospice services. - Social History Smoking Status: Smokes 11 or more cig/day Smoking: cigarettes Alcohol Use: heavy Drug Use History: none Living Situation: - Medications MAR Reviewed: Yes - Allergies Allergies/Adverse Reactions: Allergies Allergy/AdvReac Type Severity Reaction Status Date / Time No Known Allergies Allergy Unverified 05/16/19 16:49 - Subjective Chronically ill appearing, recent paracentisis with 3.5 liters removed from abdomen. Appears mildly confused, however denies. - Objective Vital Signs: Vital Signs - Most Recent Temp Pulse Resp BP Pulse Ox 98.1 F 93 16 124/71 99 05/27/19 10:15 05/27/19 10:15 05/27/19 10:15 05/27/19 10:15 05/27/19 10:15 Palliative Performance Scale: 40 - Physical Exam Constitutional: confusion HEENT: PERRLA, EOMI Deviation from normal: icteric sclera Respiratory: unlabored breathing Deviation from normal: wet mild cough Cardiovascular: RRR, no significant murmur Gastrointestinal: non-tender, positive bowel sounds Deviation from normal: distended, Musculoskeletal: pulses present, edema present Neurological: moves all 4 limbs Deviation from normal: flat affect, depressed Skin: cap refill <2 seconds Deviation from normal: icteric - Problem List (1) Palliative care encounter Code(s): Z51.5 - Current Visit: Yes Status: Acute (2) Acute liver failure Current Visit: Yes Status: Acute (3) Anemia Code(s): D64.9 - ANEMIA, UNSPECIFIED Current Visit: Yes Status: Acute (4) Ascites Code(s): R18.8 - OTHER ASCITES Current Visit: Yes Status: Acute (5) Cirrhosis of liver Code(s): K74.60 - UNSPECIFIED CIRRHOSIS OF LIVER Current Visit: Yes Status: Suspected Qualifiers: Hepatic cirrhosis type: alcoholic cirrhosis - Plan/Recommendations Plan: Home with [facility] today. Shared that if patient desired we could have men from a alcohol recovery program come to his home, also offered [facility] for family and , resources given. Answered questions in relation to hospice and services that they provided. Theraputic listening. [40] minutes spent on this encounter with >50% of the time in counseling and coordination of care. Thank you for this very appropriate consult.
--- NOTE | 2019-05-28 09:37 | DIS ---
DATE OF ADMISSION: 05/16/2019 DATE OF DISCHARGE: 05/27/2019 ADMITTING ATTENDING: Donald Gilliam MD RESIDENT: Mack Moe DO CONSULTS: 1. Gastroenterology, Manuel Orona MD. 2. PT and OT. 3. Palliative Care. 4. Case Management. 5. Hospice. PROCEDURES PERFORMED: Diagnostic and therapeutic paracentesis without complication. PRIMARY DIAGNOSES: Acute liver failure, ascites, cirrhosis. SECONDARY DIAGNOSES: Hyponatremia, coagulopathy, macrocytic anemia, thrombocytopenia. DISCHARGE MEDICATIONS: 1. Folic acid. 2. Vitamin B12 complex one tab p.o. daily. 3. Lactulose 10 gm/15 mL q.i.d. p.r.n. with a goal of 1 to 4 BMs per day. 4. Ondansetron 4 mg p.o. q.6 hours p.r.n. 5. Thiamine 100 mg daily. 6. Protonix 40 mg b.i.d. HISTORY OF PRESENT ILLNESS AND HOSPITAL COURSE: The patient is a 58-year-old daily with no past medical history, who presented for fatigue and abdominal pain. Stated that he began to feel poorly over the last month and about 2 weeks ago developed dark urine. He noticed that abdomen has began to swell over the past few days. Intake history was significant for 1 to 3 alcoholic drinks per day. However, later in the patient's admission his daughter noted that the patient had a remote history of extensive drinking on a daily basis. Early workup in the emergency department was significant for some transaminitis, thrombocytopenia, coagulopathy with prolonged PT, PTT, and elevated INR, and mild hyponatremia. Dr. Orona, GI , was consulted by the Emergency Department prior to admission, who felt that the patient was jaundiced, which correlated with his elevated bilirubin and witnessed episode of hematemesis. The patient was subsequently admitted and had an EGD and colonoscopy performed the following day. EGD was significant for erosive esophagitis. A colonoscopy was significant for two tubular adenomas. Procedure was complicated by difficult bleeding due to the patient's prolonged bleeding times, however hemostasis was achieved. Throughout the patient's stay, his BMPs were trended as well as his coagulation panel. Trended labs suggested worsening of the patient's liver function with continually rising bilirubin, worsening hyponatremia and prolonged bleeding times with elevated INR. Imaging was subsequently ordered, which showed a CT of the abdomen significant for diffuse wall thickening involving the colon or rectum suspicious for a long segment proctocolitis either infectious or inflammatory in nature, as well as a cirrhotic morphology of liver with numerous nonenhancing hypodensity suspicious for multiple smaller regenerative nodules. A diagnostic paracentesis was performed with subsequent analysis of the ascitic fluid suggestive of portal hypertension with a SAAG greater than 1.1. This was consistent with imaging findings suggestive that cirrhosis and inflammation of the liver was causing compression of the IVC with subsequent portal venous hypertension. As the patient's hepatic function continued to worsen, he developed rising ammonia levels and asterixis and was subsequently started on lactulose. Following the lactulose administration, the patient had better mentation with waxing and waning periods of altered mental status that tended to be worse at night. At this point, Dr. Orona felt that the patient was unlikely to improve with current management and would require a transplant. However, unfortunately, the patient is uninsured and would not be accepted by any transplant center with their current financial status. The patient and gained approval for emergency insurance and disability. During that time, they also wish to be evaluated by Palliative Care with goals for home hospice. During this time, the patient continued to receive lactulose with a goal of 3 to 4 BMs per day, which was achieved resulting in a more stable consistent mental status throughout the remainder of his stay. The patient and were seen by Palliative Care, who assisted them in arranging home hospice. At the time of patient's discharge, his MELD score was 29 with a Child-Thompson class C. This put his 90-day mortality ranging anywhere from 20% to 50% based on his fluctuating hepatic function throughout his stay. The patient and were educated on likelihood of the patient receiving a transplant in the future. They also received education and counseling by Palliative Care regarding goals of care in advance directives in the coming months. The patient and were also instructed on return precautions, which they voiced understanding. DISPOSITION: Stable with poor outlook. DISCHARGE INSTRUCTIONS: 1. Location: Home with hospice. 2. Diet: Low sodium. 3. Activity: As tolerated. 4. Followup: PCP as needed with home hospice assuming disease management as indicated. Job ID: [id number] MTDD
--- NOTE | 2019-05-29 09:04 | PQF ---
MAIN ESQUIVEL KATHERINE MD [id number] CLINICAL DOCUMENTATION CLARIFICATION FORM: POST DISCHARGE Addendum to original discharge summary date: ____ Late entry note date: __ DATE: 05-29-2019 ATTN:Shaista Mullen Please exercise your independent, professional judgment in responding to the clarification form. Clinical indicators are provided on the bottom of this form for your review In your clinical opinion, can you please further specify Liver Failure as : Please check appropriate box(s): [ ] Acute Alcoholic Liver Failure [ ] Acute Liver Failure [ ] Acute on Chronic Liver Failure [ ] Other diagnosis please specify: [ x ] Unable to determine For continuity of documentation, please document condition throughout progress notes and discharge summary. Thank You. CLINICAL INDICATOR: Family Medicine H&P p1 05/16-Abdominal pain generalized dull ache. He says his pain is 06/05 Family Medicine H&P p4 05/16-UA : + Bili and Urobilogen Family Medicine H&P p4 05/16-Lipase 151 Consult p1 05/16- Drinks approximately 2-3 glasses of wine Consult p3 05/1662-Aaybz-hehtx abdominal pain/distention Family med PN p4 05/20-Dr Romo says Pt here with new onset of hepatic failure of unknown etiology, though alcoholic cirrhosis is absolutely on differential Family med PN p2 05/21-Ammonia level increasing RISK FACTORS: Family Medicine H&P p1 05/16-FMHX : Colon Cancer Family Medicine H&P p4 05/16-Liver mass Family Medicine H&P p6 05/16-Acute liver failure Family Medicine H&P p6 05/16-Thrombocytopenia TREATMENTS: Consult Dr. Orona 05/16-GI consult Consult p3 05/16-Start IV Pantropazole 40 mg BID Op note 05/17-Paracentesis Lactulose 15mg PO QIP- MAR (This form is maintained as a part of the permanent medical record) 2014 [employer]. All Rights Reserved Ping [email or web address] [not provided] MTDD
== END 2019-05-27 13:10 | disposition hospice, home (50) | DRG 432 ==
LOC: ERS 13:07 → T4-B 17:46
PROVIDERS: ADMIT Family Medicine; ATTEND Family Medicine
PROC: 0DB48ZX Excision of Esophagogastric Junction, Via Natural or Artificial Opening Endoscopic, Diagnostic (ICD-10-PCS; 2019-05-17)
PROC: 0DBK8ZZ Excision of Ascending Colon, Via Natural or Artificial Opening Endoscopic (ICD-10-PCS; 2019-05-17)
PROC: 0DB68ZX Excision of Stomach, Via Natural or Artificial Opening Endoscopic, Diagnostic (ICD-10-PCS; 2019-05-17)
PROC: 0W9G3ZZ Drainage of Peritoneal Cavity, Percutaneous Approach (ICD-10-PCS; principal; 2019-05-19)
PROC: 0W9G3ZZ Drainage of Peritoneal Cavity, Percutaneous Approach (ICD-10-PCS; 2019-05-27)
DX: K70.31 Alcoholic cirrhosis of liver with ascites (principal); K72.00 Acute and subacute hepatic failure without coma; K76.6 Portal hypertension; F10.188 Alcohol abuse with other alcohol-induced disorder; K22.10 Ulcer of esophagus without bleeding; E87.1 Hypo-osmolality and hyponatremia; D68.9 Coagulation defect, unspecified; Z66 Do not resuscitate; Z51.5 Encounter for palliative care; K64.8 Other hemorrhoids; K31.89 Other diseases of stomach and duodenum; K21.0 Gastro-esophageal reflux disease with esophagitis; D53.9 Nutritional anemia, unspecified; D69.59 Other secondary thrombocytopenia; F17.210 Nicotine dependence, cigarettes, uncomplicated; D12.2 Benign neoplasm of ascending colon; E83.19 Other disorders of iron metabolism; E87.6 Hypokalemia; Z80.0 Family history of malignant neoplasm of digestive organs
CPT/HCPCS: 36415; 49083; 74177; 74178; 74183; 80053; 81001; 81003; 82042; 82105; 82140; 82247; 82274; 82607; 82728; 82747; 82805; 83540; 83550; 83690; 83735; 84100; 84145; 84157; 84484; 85025; 85060; 85610; 85730; 86140; 86706; 86709; 86803; 87070; 87205; 87340; 87389; 88112; 88305; 88312; 88313; 89051; 93005; A4353; C9113; J2270; J2704; Q0162; Q9966; Q9967